=== PATIENT | male | born 1940 | race Caucasian/White ===

== ENCOUNTER 2018-11-05 12:55 | Observation (INO) | payer OTHER ==
[~2018-11-05] VITALS: Ht 180.3 cm; Wt 111.7 kg
[~2018-11-05 12:55] MED LIST: ASPI81CH PO; ATEN25 PO; AZIT250 PO; CODGUAEL PO; FAMO20 PO; FURO20 PO; LISI5 PO; LOVA40 PO; TERA5 PO; TIMO.25OPS BOTHEYES
[2018-11-05] MEDS ORDERED: ATOR20 PO (13:00)
[2018-11-05] MEDS ORDERED: Pantoprazole So40 MG PO (13:00)
[2018-11-05] MEDS ORDERED: LEVFLO500 PO (13:00)
[2018-11-05] MEDS ORDERED: METO25ER PO (13:00)
[2018-11-05 13:22] LABS: BASOPHILS ABSOLUTE AUTO 0.07 K/mm3 (0.00-0.23); BASOPHILS PERCENT AUTO 1 % (0-2); EOSINOPHILS PERCENT AUTO 2 % (0-6); Hematocrit 45.2 % (37.0-53.0); Hemoglobin 14.5 g/dL (13.5-17.5); IMMATURE GRAN ABSOLUTE AUTO 0.06 K/mm3 (0.00-0.10); IMMATURE GRAN PERCENT AUTO 1 % (0-1); LYMPHOCYTES ABSOLUTE AUTO 0.66 K/mm3 (0.84-5.20); LYMPHOCYTES PERCENT AUTO 8 % (21-46); MONOCYTES ABSOLUTE AUTO 0.72 K/mm3 (0.16-1.47); MONOCYTES PERCENT AUTO 8 % (4-13); Mean Corpuscular HGB 28.9 pg (26.0-34.0); Mean Corpuscular HGB Conc 32.1 g/dL (31.5-36.5); Mean Corpuscular Volume 90 fL (80-100); Mean Platelet Volume 11.3 fL (9.1-12.4); NEUTROPHILS ABSOLUTE AUTO 7.08 K/mm3 (1.96-9.15); NEUTROPHILS PERCENT AUTO 81 % (41-73); Platelet Count 270 K/mm3 (150-400); RDW Coefficient Variation 13.5 % (11.7-14.2); Red Blood Cell Count 5.02 M/mm3 (4.30-5.90); White Blood Cell Count 8.79 K/mm3 (4.00-11.30)
[2018-11-05 13:48] LABS: Alanine Aminotransfer (ALT/SGP 22 U/L (12-78); Albumin, Blood 3.1 g/dL (3.4-5.0); Albumin/Globulin Ratio 0.8 (0.8-1.8); Alk Phos 69 U/L (50-136); Anion Gap 8 mmol/L (6-16); Aspartate Aminotrans (AST/SGOT 14 U/L (12-37); Bilirubin, Total 0.5 mg/dL (0.1-1.0); Blood Urea Nitrogen 11 mg/dL (8-24); Bun/Creatinine Ratio 18.3 (12.0-20.0); CO2, Blood 26 mmol/L (21-32); Calcium, Blood 8.3 mg/dL (8.5-10.1); Chloride, Blood 105 mmol/L (98-108); Globulin, Blood 3.8 g/dL (2.2-4.0); Glomerular Filtration Rate >60 (60-); Glucose, Blood 123 mg/dL (70-99); Potassium, Blood 3.7 mmol/L (3.5-5.5); Sodium, Blood 139 mmol/L (136-145); Total Protein, Blood 6.9 g/dL (6.4-8.2); Troponin I <0.015 ng/mL (0.000-0.040)
[2018-11-05] MEDS ORDERED: [UNRECOGNIZED DRUG - CODE] INH (15:34)
[2018-11-05 15:50] LABS: International Normalized Ratio 1.03; Prothrombin Time Results 10.9 Sec (9.7-11.5)
[2018-11-05] MEDS ORDERED: ASPI81CH PO (16:51)
--- NOTE | 2018-11-05 18:24 | NUR ---
SHIFT SUMMARY. PT ADMITTED TO MEDICAL FLOOR. A&OX4, INDEPENDENT IN ROOM. PT REPORTS BREATHING HAS IMPROVED AFTER RECIEVING IV LASIX IN ER. LUNGS CLEAR ALTHOUGH DIM THROUGHOUT, ON RA. PT REPORTS PRODUCTIVE COUGH. PAIN TO LOWER BACK AND ABD SECONDARY TO COUGHING PER PT REPORT, FIRST DOSE OF APAP GIVEN. ECHO AND CT WITH CONTRAST ORDERED, PT AWARE.
--- NOTE | 2018-11-06 06:16 | NUR ---
SHIFT SUMMARY PT A/O INDEPENDENT. C/O PRODUCTIVE COUGH C CLEAR PHLEGM. GOT ORDER FROM DR BARCLAY FOR EMILY. HE SAID HE WAS ABLE TO SLEEP ON AND OFF T/O NIGHT. CALL LIGHT IN REACH
[2018-11-06 11:13] LABS: Automated BF WBC Count 1.475 K/mm3 (0-999); Body Fluid WBC Count 1475 /mm3 (0-999); RBC Count, Body Fluid 10000 /mm3 (0-0)
[2018-11-06 11:14] LABS: pH, Body Fluid 7.7
[2018-11-06 11:26] LABS: Albumin, Body Fluid 2.3 g/dL; Glucose, Body Fluid 88 mg/dL; Lactate Dehydrogenase, Body Fl 248 U/L; Protein, Body Fluid 4.2 g/dL; Triglycerides, Body Fluid 18 mg/dL
[2018-11-06 11:45] LABS: Color, Body Fluid L Yellow (None-Yellow)
[2018-11-06 11:46] LABS: Appearance, Body Fluid Hazy (Clear); Total Cell Count, Body Fluid 100
--- NOTE | 2018-11-06 12:10 | NUR ---
Echocardiogram completed.
[2018-11-06] MEDS ORDERED: BREO ELLIPTA 21 EACH INH (13:40)
--- NOTE | 2018-11-06 14:03 | NUR ---
SHIFT SUMMARY 1400 PT DISCHARGED HOME VIA PERSONAL VEHICLE ACCOMPANIED AND DRIVEN BY FRIEND. PT SELF AMBULATED TO FACILITY ENTRANCE PER HIS REQUEST WITH FRIEND. IV REMOVED. D/C PAPERWORK REVIEWED WITH PT AND COPY PROVIDED. THOROCENTESIS AND ECHO COMPLETED TODAY. POST THORCENTESIS PT HAD IMPROVED AIR MOVEMENT IN L LUNG AND PT REPORTED BETTER BREATHING ALSO WITH EXERTION.
== END 2018-11-06 13:58 | disposition home or self-care (01) ==
LOC: ER 12:55 → MEDS 12:56
PROVIDERS: Physician Assistant; ADMIT Hospitalist
DX: J90 Pleural effusion, not elsewhere classified (principal); J61 Pneumoconiosis due to asbestos and other mineral fibers; I25.10 Atherosclerotic heart disease of native coronary artery without angina pectoris; I11.0 Hypertensive heart disease with heart failure; I50.9 Heart failure, unspecified; Z87.891 Personal history of nicotine dependence; Z88.0 Allergy status to penicillin; Z79.899 Other long term (current) drug therapy
CPT/HCPCS: 32555; 71045; 71046; 71260; 80053; 82042; 82945; 83615; 83880; 83986; 84157; 84478; 84484; 85025; 85610; 89051; 93005; 93010; 93306; 94640; 94760; 96374-59; 96376; 99285-25; G0378; J1940; Q9967

== ENCOUNTER 2019-01-25 07:39 | Day surgery (SDC) | payer OTHER ==
[~2019-01-25] VITALS: Ht 180.3 cm; Wt 110.4 kg
[~2019-01-25 07:39] MED LIST changes: +ALBU2.5V5 NEB; +ALBU3IS INH; +ALBU90OI6 INH; +ATOR20 PO; +Aspirin EC81 MG PO; +BENZ100A PO; +BREO ELLIPTA 21 EACH; +BREO ELLIPTA 21 EACH INH; +FURO40 PO; +LEVFLO500 PO; +LEVOFLOXACIN750 MG PO; +METO25ER PO; +POTCHL20ER PO; +Pantoprazole So40 MG PO; +Terazosin HCl10 MG PO; +[UNRECOGNIZED DRUG - CODE] INH
--- NOTE | 2019-01-25 08:26 | NUR ---
0815 Ambulatory in Day Surgery Surgical site prepped with 2% Chlorhexidine cloth wipe. History, Chart, Medications and Allergies reviewed before start of procedure.Lungs DIMINISHED L LUNG, INSP CRACKLES R, NO DYSPNEA, Patient confirms NPO status and agrees with scheduled surgery. Pre-Op teaching done. Pt verbalizes understanding. Patient reports completing Chlorhexadine shower X2 prior to admission to hospital.
--- NOTE | 2019-01-25 10:25 | NUR ---
PT A&O, DRESSING TO R NECK AND CHEST D&I. DENIES PAIN. NO ACUTE DISTRESS.
--- NOTE | 2019-01-25 10:42 | NUR ---
PT TOLERATES PO FLUIDS. PT AMB TO BATHROOM AND BACK WHICH IS ABOUT 20 FEET TOTAL. PT BIOX 85% WHILE SITTING ON THE EDGE OF THE BED. PT IS NOT VISABLY SOB BUT BIOX TAKES ABOUT 3-4 MINUTES TO RECOVER AND RETURN TO 92-95%. PT REOPRTS SIGNIFICANT SOB WITH ACTIVITY AT HOME WITH ANY ACTIVITY. PT ENCOURAGED TO TALK WITH HIS PROVIDED ABOUT THIS. PT VERBALIZED UNDERSTANDING.
--- NOTE | 2019-01-25 11:00 | NUR ---
Discharge instructions reviewed with patient. Patient verbalizes understanding. Copy given to patient to take home. Dressing to procedure site clean, dry, intact with no visible drainage, swelling, erythema or bruising noted. Patient States Post-Procedure ride home has been arranged. Discharged via wheelchair to private car for ride home.
== END 2019-01-25 10:58 | disposition home or self-care (01) ==
LOC: ORSCMMR 07:39 → ORD 09:30 → ORSCMMR 10:58
PROVIDERS: Surgery
PROC: 05HM33Z Insertion of Infusion Device into Right Internal Jugular Vein, Percutaneous Approach (ICD-10-PCS; principal; 2019-01-25 09:30)
PROC: B5131ZA Fluoroscopy of Right Jugular Veins using Low Osmolar Contrast, Guidance (ICD-10-PCS; principal; 2019-01-25 09:30)
DX: C45.0 Mesothelioma of pleura (principal); I10 Essential (primary) hypertension; K21.9 Gastro-esophageal reflux disease without esophagitis; Z79.899 Other long term (current) drug therapy; Z79.82 Long term (current) use of aspirin
CPT/HCPCS: 77001; C1788; J0690; J1100; J1642; J2250; J2370; J2405; J2704; J3010; J7120

== ENCOUNTER → 2019-04-06 | Outpatient (CLI) | payer OTHER ==
[~2019-04-06] MED LIST changes: +CEPH500 PO; +FUROSEMIDE20 MG PO; +Potassium Chlo20 ME1 PO
== END ==
LOC: LAB SHORT 19:17 → LAB 19:17
DX: L02.413 Cutaneous abscess of right upper limb (principal)
CPT/HCPCS: 87070; 87077; 87147; 87186; 87205

== ENCOUNTER 2019-06-01 00:13 | Day surgery (SDC) | payer OTHER ==
[2019-05-29 08:05] LABS: BASOPHILS ABSOLUTE AUTO 0.02 K/mm3 (0.00-0.23); BASOPHILS PERCENT AUTO 0 % (0-2); EOSINOPHILS ABSOLUTE AUTO 0.04 K/mm3 (0.00-0.68); EOSINOPHILS PERCENT AUTO 1 % (0-6); Hematocrit 23.6 % (37.0-53.0); Hemoglobin 7.6 g/dL (13.5-17.5); IMMATURE GRAN ABSOLUTE AUTO 0.04 K/mm3 (0.00-0.10); IMMATURE GRAN PERCENT AUTO 1 % (0-1); LYMPHOCYTES ABSOLUTE AUTO 0.53 K/mm3 (0.84-5.20); LYMPHOCYTES PERCENT AUTO 12 % (21-46); MONOCYTES ABSOLUTE AUTO 0.52 K/mm3 (0.16-1.47); MONOCYTES PERCENT AUTO 12 % (4-13); Mean Corpuscular HGB 34.5 pg (26.0-34.0); Mean Corpuscular HGB Conc 32.2 g/dL (31.5-36.5); Mean Platelet Volume 12.3 fL (9.1-12.4); NEUTROPHILS ABSOLUTE AUTO 3.39 K/mm3 (1.96-9.15); NEUTROPHILS PERCENT AUTO 75 % (41-73); Platelet Count 53 K/mm3 (150-400); RDW Coefficient Variation 23.4 % (11.7-14.2); RDW Standard Deviation 90.5 fL (35.1-46.3); White Blood Cell Count 4.54 K/mm3 (4.00-11.30)
[2019-05-29 08:15] LABS: Mean Corpuscular Volume 107 fL (80-100)
[2019-05-29 08:17] LABS: Alanine Aminotransfer (ALT/SGP 19 U/L (12-78); Albumin, Blood 2.6 g/dL (3.4-5.0); Albumin/Globulin Ratio 0.8 (0.8-1.8); Alk Phos 85 U/L (50-136); Anion Gap 8 mmol/L (6-16); Aspartate Aminotrans (AST/SGOT 22 U/L (12-37); Bilirubin, Total 0.9 mg/dL (0.1-1.0); Blood Urea Nitrogen 37 mg/dL (8-24); Bun/Creatinine Ratio 33.6 (12.0-20.0); CO2, Blood 27 mmol/L (21-32); Calcium, Blood 7.5 mg/dL (8.5-10.1); Chloride, Blood 101 mmol/L (98-108); Globulin, Blood 3.3 g/dL (2.2-4.0); Glomerular Filtration Rate >60 (60-); Glucose, Blood 91 mg/dL (70-99); Potassium, Blood 3.9 mmol/L (3.5-5.5); Sodium, Blood 136 mmol/L (136-145); Total Protein, Blood 5.9 g/dL (6.4-8.2)
[~2019-06-01 00:13] MED LIST changes: -CEPH500 PO; -FUROSEMIDE20 MG PO; -Potassium Chlo20 ME1 PO
[2019-06-01] MEDS ORDERED: Potassium Chlo20 ME1 PO (08:08)
[2019-06-01] MEDS ORDERED: FUROSEMIDE20 MG PO (08:08)
[2019-06-01] MEDS ORDERED: CEPH500 PO (08:10)
--- NOTE | 2019-06-01 15:23 | NUR ---
CRACKLES IN LLL NOTED THROUGHOUT TRANSFUSION. NO C/O SOB OR COUGHING.
== END 2019-06-01 11:45 | disposition home or self-care (01) ==
LOC: ATC 00:13
PROVIDERS: Internal Medicine Hematology & Oncology
PROC: 30243N1 Transfusion of Nonautologous Red Blood Cells into Central Vein, Percutaneous Approach (ICD-10-PCS; principal; 2019-06-01)
DX: C45.0 Mesothelioma of pleura (principal); D63.0 Anemia in neoplastic disease; I11.0 Hypertensive heart disease with heart failure; I50.9 Heart failure, unspecified; I25.10 Atherosclerotic heart disease of native coronary artery without angina pectoris; K21.9 Gastro-esophageal reflux disease without esophagitis; M19.90 Unspecified osteoarthritis, unspecified site; E66.9 Obesity, unspecified; Z68.34 Body mass index [BMI] 34.0-34.9, adult; Z87.891 Personal history of nicotine dependence; Z95.1 Presence of aortocoronary bypass graft; Z79.899 Other long term (current) drug therapy; Z79.82 Long term (current) use of aspirin; Z88.0 Allergy status to penicillin
CPT/HCPCS: 36415; 36430; 80053; 85025; 86850; 86900; 86901; 86923; J1642; J7050; P9016

== ENCOUNTER → 2019-08-13 | Outpatient (CLI) | payer OTHER ==
[~2019-08-13] MED LIST changes: +CEPH500 PO; +FUROSEMIDE20 MG PO; +Potassium Chlo20 ME1 PO
[2019-08-13 18:22] LABS: Adenovirus F 40/41 Not Detected (NOT DETECT); Astrovirus Not Detected (NOT DETECT); Campylobacter Sp Not Detected (NOT DETECT); Cryptosporidium Not Detected (NOT DETECT); Cyclospora Cayetanensis Not Detected (NOT DETECT); E. Coli O157 Not Detected (NOT DETECT); Entamoeba Histolytica Not Detected (NOT DETECT); Enteroaggregative E. coli-EAEC Not Detected (NOT DETECT); Enteropathogenic E. coli-EPEC Not Detected (NOT DETECT); Enterotoxigenic E. coli-ETEC Not Detected (NOT DETECT); Giardia Lamblia Not Detected (NOT DETECT); Norovirus GI/GII Not Detected (NOT DETECT); Plesiomonas Shigelloides Not Detected (NOT DETECT); Rotavirus A Not Detected (NOT DETECT); Salmonella Sp Not Detected (NOT DETECT); Sapovirus Not Detected (NOT DETECT); Shiga Toxin-prod E. coli-STEC Not Detected (NOT DETECT); Shigella/Enteroin E. coli-EIEC Not Detected (NOT DETECT); Vibrio Cholerae Not Detected (NOT DETECT); Vibrio Sp Not Detected (NOT DETECT); Yersinia Enterocolitica Not Detected (NOT DETECT)
== END ==
LOC: LAB EV 14:00
PROVIDERS: Physician Assistant Surgical
DX: R19.7 Diarrhea, unspecified (principal)
CPT/HCPCS: 0097U

== ENCOUNTER 2019-10-13 06:22 | Day surgery (SDC) | payer OTHER ==
[~2019-10-13] VITALS: Ht 177.8 cm; Wt 94.0 kg
[2019-10-13] MEDS ORDERED: Prinivil10 MG PO (06:54)
--- NOTE | 2019-10-13 11:45 | NUR ---
10cc air removed from R wrist TR band. -bleeding or swelling. Pt up to the bathroom /c sba. Tolerated well.
--- NOTE | 2019-10-13 13:01 | NUR ---
L WRIST TR BAND REMOVED. -BLEEDING OR SWELLING. PUNCTURE AREA CLEANED WITH NS AND CLOTH DOT DRSG PLACED. R WRIST SPLINT REAPPLIED. IV REMOVED. PT TAKEN OUT OF THE HRT CENTER VIA W/C.
== END 2019-10-13 13:00 | disposition home or self-care (01) ==
LOC: MHTC 06:22
PROC: B206YZZ Plain Radiography of Right and Left Heart using Other Contrast (ICD-10-PCS; principal; 2019-10-13)
PROC: 4A023N8 Measurement of Cardiac Sampling and Pressure, Bilateral, Percutaneous Approach (ICD-10-PCS; principal; 2019-10-13)
PROC: B201YZZ Plain Radiography of Multiple Coronary Arteries using Other Contrast (ICD-10-PCS; principal; 2019-10-13)
DX: I25.119 Atherosclerotic heart disease of native coronary artery with unspecified angina pectoris (principal); I27.22 Pulmonary hypertension due to left heart disease; I11.0 Hypertensive heart disease with heart failure; I50.9 Heart failure, unspecified; J44.9 Chronic obstructive pulmonary disease, unspecified; I08.3 Combined rheumatic disorders of mitral, aortic and tricuspid valves; Z88.0 Allergy status to penicillin; Z95.1 Presence of aortocoronary bypass graft; Z87.891 Personal history of nicotine dependence; Z79.82 Long term (current) use of aspirin; Z79.899 Other long term (current) drug therapy; I77.819 Aortic ectasia, unspecified site
CPT/HCPCS: 93461; 99152; 99153; C1769; C1894; J1644; J2250; J3010; J7030; Q9967

== ENCOUNTER 2020-03-09 08:28 | Inpatient (IN) | payer MEDICARE, OTHER ==
[~2020-03-09] VITALS: Ht 185.4 cm; Wt 73.8 kg
[~2020-03-09 08:28] MED LIST changes: -ATOR20 PO; -Aspirin EC81 MG PO; -METO25ER PO; -Pantoprazole So40 MG PO
[2020-03-09 09:39] LABS: BASOPHILS ABSOLUTE AUTO 0.05 K/mm3 (0.00-0.23); BASOPHILS PERCENT AUTO 0 % (0-2); EOSINOPHILS PERCENT AUTO 0 % (0-6); Hematocrit 37.2 % (37.0-53.0); Hemoglobin 11.1 g/dL (13.5-17.5); IMMATURE GRAN ABSOLUTE AUTO 0.25 K/mm3 (0.00-0.10); IMMATURE GRAN PERCENT AUTO 1 % (0-1); LYMPHOCYTES ABSOLUTE AUTO 0.56 K/mm3 (0.84-5.20); LYMPHOCYTES PERCENT AUTO 3 % (21-46); MONOCYTES ABSOLUTE AUTO 1.02 K/mm3 (0.16-1.47); MONOCYTES PERCENT AUTO 5 % (4-13); Mean Corpuscular HGB 27.8 pg (26.0-34.0); Mean Corpuscular HGB Conc 29.8 g/dL (31.5-36.5); Mean Corpuscular Volume 93 fL (80-100); NEUTROPHILS ABSOLUTE AUTO 19.61 K/mm3 (1.96-9.15); NEUTROPHILS PERCENT AUTO 91 % (41-73); NRBC ABSOLUTE 0.02 K/mm3 (0.00-0.02); NRBC Auto 0.1 /100 WBC (0.0-0.2); Platelet Count 363 K/mm3 (150-400); RDW Coefficient Variation 15.5 % (11.7-14.2); RDW Standard Deviation 50.5 fL (35.1-46.3); White Blood Cell Count 21.49 K/mm3 (4.00-11.30)
[2020-03-09 10:01] LABS: Albumin, Blood 2.6 g/dL (3.4-5.0); Albumin/Globulin Ratio 0.7 (0.8-1.8); Bilirubin, Total 0.8 mg/dL (0.1-1.0); Bun/Creatinine Ratio 25.6 (12.0-20.0); Calcium, Blood 8.6 mg/dL (8.5-10.1); Creatinine, Blood 2.34 mg/dL (0.60-1.20); Globulin, Blood 3.8 g/dL (2.2-4.0); Potassium, Blood 5.2 mmol/L (3.5-5.5); Total Protein, Blood 6.4 g/dL (6.4-8.2)
[2020-03-09 10:33] LABS: International Normalized Ratio 1.33
[2020-03-09] MEDS ORDERED: ATOR20 PO (12:26)
[2020-03-09] MEDS ORDERED: Hydroxyzine HCl50 MG PO (12:27)
[2020-03-09] MEDS ORDERED: METO25ER PO (12:28)
[2020-03-09] MEDS ORDERED: Prinivil10 MG PO (12:28)
[2020-03-09] MEDS ORDERED: Pantoprazole So40 MG PO (12:28)
[2020-03-09] MEDS ORDERED: Aspirin EC81 MG PO (12:28)
[2020-03-09] MEDS ORDERED: PRED FORTE5 M1 LEFTEYE (12:29)
[2020-03-09] MEDS ORDERED: TRIFLURIDINE 1% LEFTEYE (12:30)
[2020-03-09] MEDS ORDERED: Ondansetron Odt8 MG SL (12:39)
[2020-03-09 12:58] LABS: CPK Creatine Kinase 73 U/L (39-308)
--- NOTE | 2020-03-09 14:00 | NUR ---
ARIVES TO ICU: PT ARIVES TO ICU FROM ED NO ACUTE DISTRESS NOTED. PT IS CURRENTLY ON 4L O2 NC. PLACED ON ICU MONITOR. DR HAYES AT BEDSIDE TO ASSIST WITH TRANSFER TO ICU BED.
--- NOTE | 2020-03-09 14:00 | NUR ---
EYES AND SHINGLES: PT IS NOTED TO HAVE SCABS RANGING ONVER THE TOP OF THE L SIDE OF HIS HEAD DOWN TO HIS L EYE. SOME WEEPING NOTED AROUND THE SCABS NEAR THE L EYE. L EYE PT KEEPS CLOSED AND HAS TO BE MANUALLY OPENED TO ASSESS. EYE DROPPS ORDERED PER HOME MEDICATIONS LIST.
--- NOTE | 2020-03-09 14:30 | NUR ---
PT VERBALIZES THAT IN THE EVENT HE IS UNABLE TO MAKE DECISIONS FOR HIMSELF, HE WOULD APPOINT HIS BROTHER TO BE HIS DECISION MAKER.
--- NOTE | 2020-03-09 14:40 | NUR ---
KUO STARTED NG TUBE PLACED AND HOOKED UP TO LOW INT SUCTION.
--- NOTE | 2020-03-09 14:41 | NUR ---
IN ROOM: ASSESSING PT FOR THORACENTISIS AT THIS TIME.
--- NOTE | 2020-03-09 14:47 | NUR ---
Pt resting in bed and receiving care from ICU staff. Pt currently in Airborne precautions. Spoke with Bedside RN Didi. Didi reports Pt has given permission to call friend and Pt's brother. Pt has desginated his brother has decision maker if Pt is not able to make decisions. Called friend Kalyn that is listed and provided update. Received Pt's brother Mingo contact information from Kalyn. Kalyn reports brother plans to come down to [place] to visit Pt tomorrow. Called and left a message with Pt's brother Mingo with request for a return phone call. Mingo's number [phone]. Friend Kalyn's number [phone]. Palliative Care will remain available for therapeutic visits.
--- NOTE | 2020-03-09 14:54 | NUR ---
THORASENTISIS IN PROGRESS AT THIS TIME.
--- NOTE | 2020-03-09 15:12 | NUR ---
Late Entry from previous note. Received return call from Pt's brother Mingo. Updated Mingo and reviewed plan of care. Mingo reports living [place] of [facility] and plans to head down tomorrow morning. Mingo requests call with any change in Pt's condition. Mingo will have his cell phone with him tomorrow but requests to not call cell number until tomorrow. Mingo gives consent to leave message if needed. Mingo's Cell number [phone]. Home number [phone].
--- NOTE | 2020-03-09 15:18 | NUR ---
THORACENTESIS: UNSUCESSFULL AT THIS TIME.
[2020-03-09 15:45] LABS: Source, Urine Clean Catch
[2020-03-09 15:51] LABS: Hematocrit 38.6 % (37.0-53.0); Hemoglobin 11.3 g/dL (13.5-17.5)
[2020-03-09 16:06] LABS: Calcium, Blood 8.1 mg/dL (8.5-10.1); Creatinine, Blood 2.5 mg/dL (0.60-1.20); Potassium, Blood 5.9 mmol/L (3.5-5.5)
[2020-03-09 16:32] LABS: Base Excess Venous -4.8 mmol/L; Bicarbonate Venous 19.2 mmol/L (24.0-30.0); PCO2 Venous 83.7 mmHg (38-42); PO2 Venous 77.1 mmHg (38-42)
[2020-03-09 16:33] LABS: pH Blood Venous 7.09 (7.34-7.37)
[2020-03-09 16:41] LABS: Appearance, Urine Hazy (Clear); Bilirubin, Urine Neg (Neg); Blood, Urine Neg (Neg); Color, Urine Amber (P-Yellow); Glucose Qualitative, Urine Neg (Neg); Ketones, Urine 1+ (Neg); Leukocyte Esterase, Urine 1+ (Neg); Nitrite, Urine Neg (Neg); Protein, Urine 1+ (Neg); Urobilinogen, Urine NORM (Normal)
--- NOTE | 2020-03-09 16:53 | NUR ---
CRITICAL VBG: NOTIFIED DR HAYES. PREPING FOR INTUBATION
[2020-03-09 16:54] LABS: Red Blood Cells, Urine 0-2 /hpf (0-2); Squamous Epithelial Cells Rare /hpf (Few)
[2020-03-09 16:55] LABS: Bacteria Few /hpf
--- NOTE | 2020-03-09 17:47 | NUR ---
CENTRAL LINE PLACEMENT: DR REARDON COMPLETED A LIJ CENTRAL LINE PLACEMENT 8.5 CANADIAN, 4 LUMEN 16 CM. X-RAY ORDERED FOR ET TUBE AND CENTRAL LINE PLACEMENT VERAFICATION
--- NOTE | 2020-03-09 18:30 | NUR ---
1813: RADIOLOGIST JESSICA AND LIN ULTRASOUND GUIDED THORACENTESIS. 1L REMOVED OFF OF THE R LUNG. NOTED TO BE A REDISH BROWN COLOR. CHEST X-RAY ORDERED.
--- NOTE | 2020-03-09 18:45 | NUR ---
SALINAS ALMANZA: PLACED BEAR ARCHIE AT THIS TIME D/T LOW TEMP
[2020-03-09 18:58] LABS: Automated BF RBC Count 0.021 M/mm3 (0-0); Automated BF WBC Count 0.204 K/mm3 (0-999); Body Fluid WBC Count 204 /mm3 (0-999); RBC Count, Body Fluid 21000 /mm3 (0-0)
[2020-03-09 19:15] LABS: Lactate Dehydrogenase, Body Fl 227 U/L
[2020-03-09 19:16] LABS: Glucose, Body Fluid 123 mg/dL
[2020-03-09 19:29] LABS: Appearance, Body Fluid Hazy (Clear); Color, Body Fluid Amber (None-Yellow); Total Cell Count, Body Fluid 100
--- NOTE | 2020-03-09 19:30 | NUR ---
ASSUMED CARE OF PATIENT: REC'D. REPORT FROM OFFGOING SHIFT. PATIENT INTUBATED ON VENTILATOR. CURRENT DRIPS ASSESSED (SEE ICU FLOWSHEET). TEMP 90; FAREED HUGGER IN PLACE. VASOPRESSIN DRIP STARTED PER MD ORDER.
--- NOTE | 2020-03-09 20:10 | NUR ---
1700: DR HAYES IN THE ROOM, RECEIVES VERBAL AGREEMENT FROM PATIENT TO BE INTUBATED AND PLACED ON A VENT. PT ALSO AGRESS TO AN ULTRASOUND GUIDED THORASENDISIS. 1706: RT LIZETT AND JOCELYN IN THE ROOM ALONG WITH DR FREDDY ZHU RN AND AMAN RN AT THE BEDSIDE FOR ASSIST. 1707: 20MG ETOMIDATE PUSHED BY AMAN HERNANDEZ AT THIS TIME BY DIRECTION OF DR HAYES. 1708: 8.0 TUBE PLACED WITH SCOPE AND PLACED AT 24 AT THE TEETH. PT COLOR CHANGE NOTED TO IMPROVE AND LUNG SOUNDS ARE NOTED BILATERALY. 1710: PROPOFOL STARTED AT 20MCG/KG/MIN 1713: BILAT SOFT WRIST RESTRAINTS PLACED.
[2020-03-09 21:00] LABS: PCO2 Arterial 46.2 mmHg (35-45); PO2 Arterial 216 mmHg (80-100); pH Blood Arterial 7.26 (7.35-7.45)
[2020-03-09 21:16] LABS: Hematocrit 36.7 % (37.0-53.0); Hemoglobin 10.9 g/dL (13.5-17.5)
--- NOTE | 2020-03-09 21:50 | NUR ---
UPDATED DR. HAYES ON PATIENT CONDITION AND RECENT TROPONIN LEVEL.
--- NOTE | 2020-03-09 23:00 | NUR ---
DISCUSSED WITH DR. HAYES PATIENT'S URINE OUTPUT AND CURRENT CLINICAL STATUS; REQUESTED PAIN MEDS. IN ICU TO PLACE ORDERS.
--- NOTE | 2020-03-09 23:25 | NUR ---
NS 500CC IV FLUID BOLUS STARTED PER MD ORDER. PATIENT GIVEN FENTANYL 25MCG IV FOR CPOT OF 5.
[2020-03-10 03:46] LABS: BASOPHILS ABSOLUTE AUTO 0.04 K/mm3 (0.00-0.23); BASOPHILS PERCENT AUTO 0 % (0-2); EOSINOPHILS PERCENT AUTO 0 % (0-6); Hematocrit 34.8 % (37.0-53.0); Hemoglobin 10.4 g/dL (13.5-17.5); IMMATURE GRAN ABSOLUTE AUTO 0.23 K/mm3 (0.00-0.10); IMMATURE GRAN PERCENT AUTO 1 % (0-1); LYMPHOCYTES ABSOLUTE AUTO 0.33 K/mm3 (0.84-5.20); LYMPHOCYTES PERCENT AUTO 1 % (21-46); MONOCYTES ABSOLUTE AUTO 0.66 K/mm3 (0.16-1.47); MONOCYTES PERCENT AUTO 2 % (4-13); Mean Corpuscular HGB 27.5 pg (26.0-34.0); Mean Corpuscular HGB Conc 29.9 g/dL (31.5-36.5); Mean Corpuscular Volume 92 fL (80-100); Mean Platelet Volume 11.4 fL (9.1-12.4); NEUTROPHILS PERCENT AUTO 96 % (41-73); NRBC ABSOLUTE 0.14 K/mm3 (0.00-0.02); NRBC Auto 0.5 /100 WBC (0.0-0.2); Platelet Count 331 K/mm3 (150-400); RDW Coefficient Variation 15.2 % (11.7-14.2); RDW Standard Deviation 50.1 fL (35.1-46.3); Red Blood Cell Count 3.78 M/mm3 (4.30-5.90); White Blood Cell Count 27.06 K/mm3 (4.00-11.30)
[2020-03-10 04:31] LABS: Magnesium, Blood 1.3 mg/dL (1.6-2.4)
[2020-03-10 04:44] LABS: Albumin/Globulin Ratio 0.6 (0.8-1.8); Bilirubin, Total 0.4 mg/dL (0.1-1.0); Bun/Creatinine Ratio 24.9 (12.0-20.0); Calcium, Blood 7.1 mg/dL (8.5-10.1); Creatinine, Blood 2.65 mg/dL (0.60-1.20); Globulin, Blood 3.6 g/dL (2.2-4.0); Potassium, Blood 4.8 mmol/L (3.5-5.5); Total Protein, Blood 5.6 g/dL (6.4-8.2); Troponin I 0.835 ng/mL (0.000-0.040)
[2020-03-10 04:52] LABS: Phosphorus, Blood 3.3 mg/dL (2.5-4.9)
--- NOTE | 2020-03-10 05:05 | NUR ---
CALLED DR. HAYES WITH CRITICAL LAB RESULTS; UPDATED MD ON PATIENT CONDITION. REC'D. ORDERS FOR MAGNESIUM SULFATE 1 GM IV; NS 500 CC IV BOLUS; AND INSULIN HIGH SLIDING SCALE.
[2020-03-10 05:28] LABS: pH Blood Arterial 7.29 (7.35-7.45)
[2020-03-10 05:29] LABS: PCO2 Arterial 42.9 mmHg (35-45); PO2 Arterial 82.8 mmHg (80-100)
--- NOTE | 2020-03-10 06:21 | NUR ---
SHIFT SUMMARY: PATIENT REMAINS INTUBATED AND SEDATED ON PROPOFOL; PATIENT GIVEN TWO DOSES OF FENTANYL 25MCG IV DURING THE NIGHT FOR PAIN. RHYTHM SINUS TACH., 110'S. PATIENT STILL ON VASOPRESSIN, LEVOPHED, AND EPINEPHRINE WITH INABILITY TO WEAN DOWN. TEMPERATURE NOW 94.5; FAREED HUGGER IN PLACE. URINE OUTPUT MINIMAL; MD AWARE; PATIENT GIVEN TWO BOLUSES OF NS 500CC IV. PROTONIX DRIP INFUSING AT 8MG/HR; OGT TO LIWS WITH SMALL AMOUNT OF BROWNISH BLACK DRAINAGE NOTED. AWAITING BROTHER TO ARRIVE THIS AM. CONTINUE CURRENT POC.
--- NOTE | 2020-03-10 09:03 | NUR ---
CARE ASSUMED CARE AND REPORT ASSUMED FROM NIGHT DAVID CINTRON. PT INTUBATED AND SEDATED. VENT AC 18, 375, PEEP 5, FIO2 40%. LUNG SOUNDS CLEAR THROUGHOUT BUT DIMINISHED IN BASES. PROPOFOL GTT AT 30 MCG. DURING SEDATION VACATION THIS AM, PT DID OPEN HIS EYES AND WAS PULLING AGAINST RESTRAINTS. DID OPEN EYES WHEN PROMPTED BUT WAS NOT ABLE TO FOLLOW ANY OTHER COMMANDS. BUE RESTRAINED. PT HAS DIFFUSE SCABS OVER HIS LEFT FACE, EYE, AND NECK. LEVOPHED GTT INFUSING AT 20 MCG, VASOPRESSIN AT 0.04, AND EPI AT 5 MCG. PROTONIX GTT INFUSING AT 10 ML/HR. NS MIV AT 75 ML/HR. MAGNESIUM REPLACED THIS AM BY NOC SHIFT. ABX INFUSING. OGT SECURED AND ATTACHED TO LIWS. BLACK OUTPUT FROM OGT. OGT FLUSHED WITH 200 ML NS BY MD POE; NO ACTIVE BLOOD WITHDRAWN DURING ASPIRATION. HOB ELEVATED. WILL OBTAIN STOOL SAMPLE. WILL CONTINUE TO MONITOR.
--- NOTE | 2020-03-10 13:04 | NUR ---
REASSESSMENT PT REMAINS INTUBATED AND SEDATED. VENT AC 18, 400, 5, FIO2 35%. LUNG SOUNDS CLEAR BUT DIMINISHED IN BASES. CVP 8; MD AWARE. PROPOFOL GTT AT 30 MCG. BROTHER CORINA AND SIGNIFICANT OTHER JAYSHREE UPDATED BY MD HAYES. BROTHER CORINA CURRENTLY AT BESIDE, SEDATION VACATION IN PROGRESS. MAP >65. EPINEPHRINE GTT AT 4 MCG/MIN, LEVOPHED AT 12 MCG/MIN, VASOPRESSIN AT 0.04. PROTONIX GTT CONTINUES TO INFUSE ALONG WITH MIV NS AT 75 ML/HR. 1200 BLOOD SUGAR 240; WILL RECHECK THIS AFTERNOON AND POSSIBLY INITIATE INSULIN GTT. PT TURNED AND HOB ELEVATED. HAS THICK, YELLOW SECRETIONS. WILL CONTINUE TO MONITOR.
--- NOTE | 2020-03-10 18:32 | NUR ---
SHIFT SUMMARY PT REMAINS INTUBATED. PROPOFOL GTT REMAINS AT 30 MCG. 2 SEDATION VACATIONS PERFORMED. DID NOT START INSULIN GTT TODAY, SINCE BLOOD SUGARS HAVE DECREASED AFTER CHANGING DRIPS FROM D5 TO NS. LEVOPHED GTT DOWN TO 10 MCG. EPINEPHRINE GTT OFF SINCE 1700. VASOPRESSIN GTT CONTINUES TO INFUSE AT 0.04. LEVOPHED GTT CHANGED TO DOUBLE STRENGTH. PHOTOS OBTAINED OF SCABS; SEE CHART. PT EVALUATED BY MD POE; NO SCOPE UNLESS ACUTE BLEEDING BEGINS. PT HAS HAD BLACK OUTPUT FROM OGT ENTIRE SHIFT WITH TOTAL OF 300 ML. BROTHER, SISTER IN LAW, AND PTS GIRLFRIEND WHOM HE LIVES WITH WERE UPDATED BY MD HAYES. BROTHER CAME TO BEDSIDE, SEDATION VACATION PERFORMED, AND QUESTIONS ANSWERED. WILL GIVE BEDSIDE, HANDOFF REPORT TO UMA RN.
--- NOTE | 2020-03-10 21:36 | NUR ---
ASSUMED CARE OF PT, REPORT RCV'D FROM DAVID DIETRICH. PT INTUBATED AND SEDATED. VENT SETTINGS AC 16/450/5/35%, SATS>90%. PROPOFOL 30 MCG/KG/MIN INFUSING FOR SEDATION. PT MINIMALLY RESPONSIVE TO PAINFUL/NOXOIUS STIMULI. PT FAILS TO OPEN HIS EYES OR FOLLOW COMMANDS. WEAKLY MOVES ALL EXTREMETIES. BP STABLE AT THIS TIME WITH MAP>65. LEVOPHED @10 MCG/MIN AND VASOPRESSIN 0.04 U/MIN. EPINEPHRINE ON STANDBY SINCE 1699. PROTONIX GTT 10 ML/HR. KUO PATENT AND DRAINING. PT IN AIRBORNE PRECAUTIONS D/T HERPES ZOSTER. SEE FULL SHIFT ASSESSMENT.
--- NOTE | 2020-03-10 22:33 | NUR ---
DURING BED BATH IT WAS NOTICED THAT PT HAD LARGE 8X10 CM DARK PURPLE AREA ON COCCYX AND SURROUNDING AREA WITH 2 SMALL BLISTERS TOWARD TOP RIGHT SIDE. PICTURES TAKEN FOR PT'S CHART, MEPILEX PLACED AND DATED. CHARGE NURSE DINORA UPDATED. WILL AVOID PLACEMENT OF PT IN SUPINE POSITIONS AND WILL REPOSITION Q2 AND PRN.
[2020-03-11 03:44] LABS: Base Excess Venous -4.4 mmol/L; Bicarbonate Venous 20.9 mmol/L (24.0-30.0); PCO2 Venous 35.8 mmHg (38-42); PO2 Venous 46.5 mmHg (38-42); pH Blood Venous 7.37 (7.34-7.37)
[2020-03-11 03:47] LABS: BASOPHILS ABSOLUTE AUTO 0.03 K/mm3 (0.00-0.23); BASOPHILS PERCENT AUTO 0 % (0-2); EOSINOPHILS PERCENT AUTO 0 % (0-6); Hematocrit 28.3 % (37.0-53.0); Hemoglobin 9.1 g/dL (13.5-17.5); IMMATURE GRAN ABSOLUTE AUTO 0.14 K/mm3 (0.00-0.10); IMMATURE GRAN PERCENT AUTO 1 % (0-1); LYMPHOCYTES ABSOLUTE AUTO 0.39 K/mm3 (0.84-5.20); LYMPHOCYTES PERCENT AUTO 2 % (21-46); MONOCYTES ABSOLUTE AUTO 0.52 K/mm3 (0.16-1.47); MONOCYTES PERCENT AUTO 2 % (4-13); Mean Corpuscular HGB Conc 32.2 g/dL (31.5-36.5); Mean Platelet Volume 11.8 fL (9.1-12.4); NEUTROPHILS ABSOLUTE AUTO 20.92 K/mm3 (1.96-9.15); NEUTROPHILS PERCENT AUTO 95 % (41-73); NRBC ABSOLUTE 0.03 K/mm3 (0.00-0.02); NRBC Auto 0.1 /100 WBC (0.0-0.2); Platelet Count 200 K/mm3 (150-400); RDW Standard Deviation 46.7 fL (35.1-46.3); Red Blood Cell Count 3.25 M/mm3 (4.30-5.90)
[2020-03-11 04:05] LABS: Albumin, Blood 1.9 g/dL (3.4-5.0); Albumin/Globulin Ratio 0.6 (0.8-1.8); Bilirubin, Total 0.5 mg/dL (0.1-1.0); Bun/Creatinine Ratio 24.2 (12.0-20.0); Calcium, Blood 7.1 mg/dL (8.5-10.1); Creatinine, Blood 2.73 mg/dL (0.60-1.20); Globulin, Blood 3.3 g/dL (2.2-4.0); Magnesium, Blood 1.5 mg/dL (1.6-2.4); Phosphorus, Blood 3.1 mg/dL (2.5-4.9); Potassium, Blood 4.2 mmol/L (3.5-5.5); Total Protein, Blood 5.2 g/dL (6.4-8.2)
[2020-03-11 04:07] LABS: Mean Corpuscular Volume 87 fL (80-100)
--- NOTE | 2020-03-11 06:03 | NUR ---
SHIFT SUMMARY NO ACUTE CHANGES OVERNIGHT. PT REMAINS INTUBATED AND SEDATED. VENT SETTINGS REMAIN UNCHANGED. PROPOFOL @ 25 MCG/KG/MIN FOR SEDATION. NO NEUROLOGICAL CHANGES, PT FAILS TO OPEN EYES, WEAKLY RESPONDS TO PAINFUL STIMULI WITH FACIAL GRIMACE, SLIGHTLY MOVES ALL EXTREMETIES. SMALL AMOUNT OF CLEAR THIN SPUTUM FROM ETT. OGT TO LIS, 25 ML DARK BROWN COFFEE GROUND OUTPUT. 950 ML URINARY OUTPUT. PT'S VSS T/O SHIFT. LEVOPHED @ 6 MCG/MIN, VASOPRESSIN 0.04 U/MIN. ATTEMPTS TO TURN VASOPRESSIN OFF RESULTED IN HYPOTENSION. CVP FROM THIS SHIFT 5. 950 ML URINARY OUTPUT THIS SHIFT. WILL REPORT TO DAYSHIFT NURSE.
--- NOTE | 2020-03-11 08:30 | NUR ---
ASSUMED CARE OF PT AT 0700. REPORT FROM LANDON HERNANDEZ. PT INTUBATED AND SEDATED. VENT SETTINGS AC 18/400/5/35%. PROPOFOL INFUSING AT 25 MCG/KG/MIN. LEVOPHED INFUSING AT 6 MCG/MIN, VASOPRESSIN 0.04 UNIT/MIN, WILL CONTINUE TO TITRATE FOR MAP >65. LUNGS DIMINISHED THROUGHOUT. SCANT THIN CLEAR SECRETIONS FROM ETT. GAG AND SWALLOW REFLEX PRESENT. DURING SEDATION VACATION, PT ABLE TO WIGGLE TOES BILATERALLY ON COMMAND, DID NOT SQUEEZE HANDS, EYE REMAINED CLOSED, GRIMACES c CARE. PROPOFOL RESTARTED D/T INCREASED RESP RATE. ABD ROUND, SOFT, APPEARS TENDER, GRIMACES c PALPATION. OGT TO LIS, CLEAR EMESIS c COFFEE GROUND PIECES, MINIMAL AMOUT. KUO PATENT, DRAINING CLEAR YELLOW URINE TO GRAVITY. COCCXY RED, MEIPLEX IN PLACE, WILL TURN q2 AND AVOID SUPINE POSITION. SCABBING TO LEFT SIDE OF HEAD, SEE PHOTOS IN CHART. LEFT IJ, DRESSING C/D/I. CVP 8. MEDIPORT TO RIGHT CHEST, DRESSING CHANGED. WILL CONTINUE TO MONITOR.
--- NOTE | 2020-03-11 17:08 | NUR ---
SHIFT SUMMARY PT REMAINS INTUBATED AND SEDATED. VENT SETTINGS AC 18/450/5/35%. PROPOFOL INFUSING AT 25 MCG/KG/MIN. LEVOPHED REMAINED AT 6 MCG/MIN ENTIRE SHIFT, VASOPRESSIN 0.04 UNITS/MIN. PROTONIX 10 ML/HR, NS 75 ML/HR. MG REPLACED THIS SHIFT, VANCOMYCIN IVPB GIVEN. PT CONTINUES TO GRIMACE c CARE, FENTANYL PRN GIVEN. INCREASED SECRETIONS THIS AFTERNOON, SMALL AMOUNT OF THICK WHITE. LUNGS DIMINISHED THROUGHOUT. TUBE FEEDINGS STARTED, PIVOT 1.5 AT 10 ML/HR c 30ML q4 HOUR FLUSH. 30ML RESIDUAL THIS AFTERNOON. KUO PATENT, DRAINING TO GRAVITY. CL AND MEDIPORT DRESSINGS CHANGED THIS SHIFT. WILL CONTINUE TO MONITOR UNTIL REPORT TO ONCOMING NURSE.
--- NOTE | 2020-03-11 19:43 | NUR ---
REPORT FROM KANCHAN HERNANDEZ. ASSUMED PT CARE. PT INTUBATED, SETTINGS AC 18/400/5/35%, HILDA WELL. BILATERAL SOFT WRIST RESTRAINTS SECURED. PT HAS PROTONIX DRIP INFUSING, LEVO @ 6MCG/MIN, NS @ 75ML/HR, PROPOFOL @ 25MCG/KG/MIN. DUE TO BP OF 78/40 VASOPRESSIN RESUMED AT 0.04UNITS/MIN. CVP MEASURED AT THIS TIME, 7. QUAD LUMEN CENTRAL LINE TO LEFT IJ SECURE WITH DRESSING C/D/I. MEDIPORT TO RIGHT CHEST WALL NOTED WITH C/D/I DRESSING. PT ATTEMPTS TO MOVE ARMS DURING CARE, GRIMACES SOME. ORAL CARE COMPLETE. TUBE FEEDINGS INF THROUGH OG AT 10ML/HR WITH 30ML Q4 WATER FLUSH. RESIDUAL MEASURED AT 115ML, READMINISTERED RESIDUAL AMOUNT AND RESUMED FEEDS. KUO PATENT AND DRAINING YELLOW URINE. PT TURNED TO RIGHT HIP, PILLOWS PLACED FOR SUPPORT. MEPILEX TO COCCYX INTACT. SCABBING TO LEFT SIDE OF HEAD NOTED. NO OBVIOUS DRAINAGE. SEE FULL SHIFT ASSESSMENT. WILL CONTINUE TO MONITOR AND TURN.
[2020-03-12 04:51] LABS: Base Excess Venous -4.4 mmol/L; Bicarbonate Venous 20.6 mmol/L (24.0-30.0); PCO2 Venous 39.2 mmHg (38-42); PO2 Venous 38.8 mmHg (38-42); pH Blood Venous 7.34 (7.34-7.37)
[2020-03-12 04:58] LABS: BASOPHILS ABSOLUTE AUTO 0.02 K/mm3 (0.00-0.23); BASOPHILS PERCENT AUTO 0 % (0-2); EOSINOPHILS PERCENT AUTO 0 % (0-6); Hematocrit 26.6 % (37.0-53.0); Hemoglobin 8.5 g/dL (13.5-17.5); IMMATURE GRAN ABSOLUTE AUTO 0.21 K/mm3 (0.00-0.10); IMMATURE GRAN PERCENT AUTO 1 % (0-1); LYMPHOCYTES ABSOLUTE AUTO 0.31 K/mm3 (0.84-5.20); LYMPHOCYTES PERCENT AUTO 2 % (21-46); MONOCYTES ABSOLUTE AUTO 0.59 K/mm3 (0.16-1.47); MONOCYTES PERCENT AUTO 3 % (4-13); Mean Corpuscular Volume 88 fL (80-100); Mean Platelet Volume 11.9 fL (9.1-12.4); NEUTROPHILS ABSOLUTE AUTO 17.21 K/mm3 (1.96-9.15); NEUTROPHILS PERCENT AUTO 94 % (41-73); NRBC ABSOLUTE 0.02 K/mm3 (0.00-0.02); NRBC Auto 0.1 /100 WBC (0.0-0.2); Platelet Count 181 K/mm3 (150-400); RDW Coefficient Variation 15.3 % (11.7-14.2); RDW Standard Deviation 46.8 fL (35.1-46.3); Red Blood Cell Count 3.04 M/mm3 (4.30-5.90); White Blood Cell Count 18.34 K/mm3 (4.00-11.30)
[2020-03-12 05:24] LABS: Alanine Aminotransfer (ALT/SGP 355 U/L (12-78); Albumin, Blood 1.7 g/dL (3.4-5.0); Albumin/Globulin Ratio 0.5 (0.8-1.8); Alk Phos 79 U/L (50-136); Anion Gap 10 mmol/L (6-16); Aspartate Aminotrans (AST/SGOT 116 U/L (12-37); Bilirubin, Total 0.4 mg/dL (0.1-1.0); Blood Urea Nitrogen 68 mg/dL (8-24); Bun/Creatinine Ratio 28.3 (12.0-20.0); CO2, Blood 22 mmol/L (21-32); Calcium, Blood 6.9 mg/dL (8.5-10.1); Chloride, Blood 102 mmol/L (98-108); Globulin, Blood 3.2 g/dL (2.2-4.0); Glomerular Filtration Rate 28 (60-); Glucose, Blood 132 mg/dL (70-99); Magnesium, Blood 1.7 mg/dL (1.6-2.4); Phosphorus, Blood 4.6 mg/dL (2.5-4.9); Sodium, Blood 134 mmol/L (136-145); Total Protein, Blood 4.9 g/dL (6.4-8.2); Vancomycin, Random 10.6 ug/mL
[2020-03-12 05:36] LABS: International Normalized Ratio 1.12; Prothrombin Time Results 11.9 Sec (9.7-11.5)
--- NOTE | 2020-03-12 06:23 | NUR ---
SHIFT SUMMARY PT HAD GREAT NIGHT. PT STILL INTUBATED, SPONT RATE 16, 7/5, FI02 35% TOLERATED SEDATION VACATION AND SBT, ON SPONT SINCE 499. ABLE TO TOLERATE BREAK FROM VASOPRESSIN FROM 514 TO 619. RESTARTED DUE TO MAP OF 54. PT OFF PROPOFOL SINCE 444, FOLLOWING COMMANDS, ABLE TO ANSWER YES/ON QUESTIONS WITH NOD. FENTANYL GIVEN FOR PAIN/VENT COMPLIANCE. LEVOPHED INFUSING AT 5MCG/MIN. PT TOLERATING TUBE FEEDS, RESIDUALS NOT GREATER THAN 200ML. DRESSING TO COCCYX CHANGED, MEPILEX DRESSINGS PLACED TO HEELS. CVP THIS SHIFT 7. KUO PATENT AND DRAINING YELLOW URINE WITH 1150 ML TOTAL OUT. MEDIPORT DRESSING REMAINS C/D/I, QUAD LUMEN CENTRAL LINE TO LEFT IJ STILL INTACT, DRESSING C/D. ABD SOFT, NONTENDER, HYPOACTIVE BS. NO STOOL THIS SHIFT. SHINGLES TO SCALP SEEM TO BE IMPROVING. BED BATH COMPLETE, LINENS CHANGED, GREEN LIFT SHEET PLACED UNDER PT. DUE TO MALFUNCTION WITH BED, UNABLE TO WEIGH PT. PENDING ECHO THIS AM. WILL CONTINUE TO MONITOR AND REPORT TO ONCOMING SHIFT.
--- NOTE | 2020-03-12 08:40 | NUR ---
ASSESSMENT- PT WITH EYES CLOSED, OPENS RIGHT EYE TO NAME, NODS HEAD APPROPRIATELY. EXPLAINED PLAN OF CARE. C/O ANXIETY AND PAIN, UNABLE TO STATE WHERE PAIN IS. PROPOFOL RESTARTED AT 15 MCG/KG/MIN, RX GIVEN FOR PAIN WITH IMPROVEMENT. ORALLY INTUBATED, TUBE SECURE. LUNGS CLEAR, SUCTIONED SMALL AMOUNT WHITE SECRETIONS. TOLERATING SPONTANEOUS TRIAL. SINUS RHYTHM, SBP 110'S LEVOPHED AT 5 MCG/MIN DECREASED TO 3 MCG/MIN, VASOPRESSIN GIT INFUSING, NS AT 75 CC/HR, PROTONIX AT 10 CC/HR. RIGHT CHEST MEDIPORT INTACT, LIJ CENTRAL LINE INTACT. TUBE FEEDING VIA OGT AT 10 CC/HR, RARE BOWEL SOUNDS, ABDOMEN SOFT. RESIDUAL 125 CC-REPLACED. UO ADEQUATE VIA KUO. REPOSITIONED, COCCYX AREA DARK PURPLE, MEPILEX INTACT. MEPILEX TO BOTH FEET, NO REDNESS NOTED, HEELS ELEVATED ON PILLOWS. REPOSITIONED TO SIDE TO AVOID ANY PRESSURE ON COCCYX. BILATERAL WRIST RESTRAINTS ON. DRY SCABBED AREA LEFT FOREHEAD TO EYE. AIRBORNE, CONTACT PRECAUTIONS.
--- NOTE | 2020-03-12 12:25 | NUR ---
DR. HEREDIA HERE-UDPATED. SEE ORDERS. PT TOLERATING SPONTANEOUS SETTINGS WTIH ADEQUATE TIDAL VOLUMES. AWAKENS EASILY TO NAME, NODDING HEAD APPROPRIATELY. C/O PAIN-RX GIVEN WITH IMPROVEMENT. BLOOD SUGAR STABLE. VASOPRESSIN OFF. NEEDED TO INCREASE LEVOPHED TO 6 MCG/MIN FOR BP SUPPORT. SEE ORDERS.
--- NOTE | 2020-03-12 12:45 | NUR ---
NS CHANGED TO TKO, IV LASIX GIVEN PER ORDERS. LAB DRAWN TO CHECK H/H LEVEL. MAY POSSIBLY EXTUBATE TODAY.
[2020-03-12 13:13] LABS: Hematocrit 27.7 % (37.0-53.0); Hemoglobin 8.9 g/dL (13.5-17.5)
--- NOTE | 2020-03-12 14:39 | NUR ---
PT EXTUBATED TO NASAL CANNULA. SATURATIONS STABLE. CONGESTED COUGH. GENERALIZED WEAKNESS, ABLE TO LIFT ARMS OFF BED. CONSENT TO TALK WITH BROTHERS AND SIG OTHER JAYSHREE GIVEN. DIURESED 400 CC FROM LASIX. LUNGS COARSE, DIMINISHED BASES AFTER EXTUBATION. RESPIRATIONS UNLABORED
--- NOTE | 2020-03-12 16:00 | NUR ---
PT WITH STABLE VS. USING ORAL SUCTION. LUNGS CLEAR, DIMINISHED THROUGHOUT. MAINTAINING SATURATIONS WITH NASAL CANNULA. NO N/V. ORAL CARE DONE.
--- NOTE | 2020-03-12 16:35 | NUR ---
CONSULT NOTE- UPDATE TO DR. HEREDIA THAT PT UNABLE TO OPEN EYE, TISSUE RED AND SWOLLEN. SCABBED AREA FOREHEAD, EYELIDS. OPHTHAMOLOGY CONSULT-SPOKE WITH DR. TORREZ, DR. HEREDIA SPOKE WITH DR. TORREZ AND PHARMACIST TO CALL TO DISCUSS AVAILABLE ANTIVIRAL EYEDROPS.
--- NOTE | 2020-03-12 18:03 | NUR ---
PT AWAKE, ALERT, SPEECH SOFT BUT UNDERSTANDABLE. DENIES CHEST PAIN OR SOB. C/O NECK DISCOMFORT-IMPROVES WITH REPOSITIONING. DIURESING AFTER EARLIER DOSE LASIX. LEVOPHED DECREASED TO 4 MCG/MIN. NPO. FREQUENT, CONGESTED COUGH. USING ORAL SUCTION. COCCYX DRSG IN PLACE. ISOLATION PRECAUTIONS. SCABS LEFT FOREHEAD, EYE UNCHANGED.
--- NOTE | 2020-03-12 20:05 | NUR ---
ASSUMPTION OF CARE REPORT FROM MOUNA RODRIGUEZ RN AT 1900. ASSUMED PT CARE. PT EXTUBATED TODAY. NO OBVIOUS RESP DISTRESS, VSS. PT HAS NS INFUSING AT TKO, PROTONIX INFUSING AT 10ML/HR. LEVOPHED INF AT 4MCG/MIN, PRESSURES STABLE. TUBE FEEDINGS DC TODAY, BOWEL SOUNDS STILL HYPOACTIVE. PT ALERT AND ORIENTED X3, ABLE TO COMMUNICATE NEEDS. NOT ABLE TO EFFECTIVELY SUCTION HIMSELF, NOT ABLE TO EFFECTIVELY PUSH CALL LIGHT. KUO PATENT AND DRAINING CLEAR YELLOW URINE. PT C/O NECK PAIN AND PAIN TO FACE. SCABBING TO SCALP APPEARS TO HAVE IMPROVED. PT ABLE TO FEEBLY MOVE ALL [address] EXT FLOATED ON PILLOWS. PT ON 3L O2 PER NCC, SATS AT 100%. SECRETIONS THICK AND WHITE IN COLOR. LUNG SOUNDS DIMINISHED BUT CLEAR WITH OBVIOUS UPPER AIRWAY SECRETIONS HEARD. ASSISTED WITH SUCTIONING. PT REPOSITIONED TO LEFT SIDE WITH PILLOWS UNDER HIPS AND BACK. MUSIC PUT ON TV PER PT REQUEST. CALL LIGHT AND REMOTE IN REACH. SEE NURSING ASSESSMENT.
[2020-03-13 04:40] LABS: BASOPHILS ABSOLUTE AUTO 0.02 K/mm3 (0.00-0.23); BASOPHILS PERCENT AUTO 0 % (0-2); EOSINOPHILS PERCENT AUTO 0 % (0-6); Hematocrit 32.1 % (37.0-53.0); Hemoglobin 10.1 g/dL (13.5-17.5); IMMATURE GRAN ABSOLUTE AUTO 0.26 K/mm3 (0.00-0.10); IMMATURE GRAN PERCENT AUTO 1 % (0-1); LYMPHOCYTES ABSOLUTE AUTO 0.23 K/mm3 (0.84-5.20); LYMPHOCYTES PERCENT AUTO 1 % (21-46); MONOCYTES ABSOLUTE AUTO 0.91 K/mm3 (0.16-1.47); MONOCYTES PERCENT AUTO 4 % (4-13); Mean Corpuscular HGB 27.9 pg (26.0-34.0); Mean Corpuscular HGB Conc 31.5 g/dL (31.5-36.5); Mean Corpuscular Volume 89 fL (80-100); Mean Platelet Volume 11.5 fL (9.1-12.4); NEUTROPHILS ABSOLUTE AUTO 21.38 K/mm3 (1.96-9.15); NEUTROPHILS PERCENT AUTO 94 % (41-73); NRBC ABSOLUTE 0.02 K/mm3 (0.00-0.02); NRBC Auto 0.1 /100 WBC (0.0-0.2); Platelet Count 242 K/mm3 (150-400); RDW Coefficient Variation 15.7 % (11.7-14.2); RDW Standard Deviation 48.1 fL (35.1-46.3); Red Blood Cell Count 3.62 M/mm3 (4.30-5.90)
[2020-03-13 04:57] LABS: Bun/Creatinine Ratio 29.5 (12.0-20.0); Calcium, Blood 7.4 mg/dL (8.5-10.1); Creatinine, Blood 2.41 mg/dL (0.60-1.20); Magnesium, Blood 1.7 mg/dL (1.6-2.4); Phosphorus, Blood 4.7 mg/dL (2.5-4.9); Potassium, Blood 3.4 mmol/L (3.5-5.5)
--- NOTE | 2020-03-13 06:25 | NUR ---
SHIFT SUMMARY PT HAD A WONDERFUL SHIFT. TOLERATING O2 AT 2L WITH NO C/O SOB OR CP. SATS REMAINED >95%. PT ALERT AND ORIENTED X3, ABLE TO MAKE NEEDS KNOWN. ARM STRENGTH SEEMS TO BE IMPROVING. ATTEMPTED TO TITRATE LEVOPHED DOWN, UNSUCCESSFUL. LEVOPHED CURRENTLY INFUSING AT 5MCG/MIN, NS AT 10ML/HR AND PROTONIX AT 10ML/HR. MEDIPORT DRESSING CLEAN AND DRY. CENTRAL LINE DRESSING CHANGED THIS AM WITH BLOOD DRAW, CAPS CHANGED. NO FURTHER SKIN ISSUES. SCABBING TO SCALP IMPROVING. NEW GREEN LIFT SHEET PLACED THIS AM AND WEIGHT OBTAINED. WILL CONTINUE TO MONITOR AND REPORT TO ONCOMING RN.
--- NOTE | 2020-03-13 07:30 | NUR ---
ASSUMED CARE OF FROM DAVID BURT. PT A&OX3. ANSWERS QUESTIONS APPRIOPRIATELY. DIFFICULTY TO UNDERSTAND DUE TO GARBLED SPEECH. ABLE TO MAKE NEEDS KNOWN. FOLLOWS COMMANDS. LS CLEAR ON THE RIGHT SIDE, DIMINISHED LLL. 2LPM O2 NC. O2 SATS DIFFICULT TO OBTAIN BUT >95%. MANAGING SECRETIONS W/O DIFFICULTY. NON-PRODUCTIVE COUGH. P/W/D. ABD SOFT, BOWEL SOUNDS HYPOACTIVE. PT NPO PENDING SPEECH EVAL. KUO CATHETER DRAINING CLEAR, YELLOW URINE. LEFT SIDE OF HEAD WITH MULTIPLE SCABS, NO DRAINAGE NOTED. LEFT EYE CRUSTED AND SWOLLEN SHUT. CLEANED AND DROPS ADMINISTERED. DIFFICULT TO ASSESS PUPILARY RESPONSE DUE TO SWELLING. 1+ EDEMA ON THE LEFT FOOT. 2+ ON THE RIGHT FOOT, COOL, DUSKY, FAINT PALPABLE PULSE CONFIRMED WITH DOPPLER. MD AWARE. LE ELEVATED ON PILLOWS. CENTRAL LINE DRESSING C/D/I. INFUSING LEVOPHED AT 5MCG/MIN VIA MEDIPORT, DRESSING C/D/I, WILL TITRATE FOR MAP >65. WILL CONTINUE TO MONITOR.
[2020-03-13 08:59] LABS: Vancomycin, Trough 4.5 ug/mL (5.0-10.0)
--- NOTE | 2020-03-13 17:21 | NUR ---
SHIFT SUMMARY PT A&OX3, INTERACTING WITH STAFF MORE THAN BEGINNING OF SHIFT. UP TO CHAIR FOR MOST OF SHIFT, TOLERATED WELL. ON ROOM AIR WITH O2 SATS >93%. LUNGS CONTINUED TO BE DIMINISHED ON LEFT SIDE. PT WITH NON-PRODUCTIVE, STRONGER COUGH. SPEECH PERFORMED SWALLOW EVAL, FAILED, REMAINS NPO, PENDING REPEAT EVAL IN AM. LEVOPHED DRIP CONTINUES, ATTEMPTED TO TITRATE DOWN, MAP'S <65. TITRATED FOR MAP'S >65. DIURESED TODAY. K REPLACED. VANCO AND ACYCLOVIR DC'D. PT TO REMAIN IN ISOLATION PER INFECTION CONTROL. PT/OT EVAL TODAY. KUO REMAINS IN PLACE, PATENT AND DRAINING TO GRAVITY. WILL CONTINUE TO MONITOR
--- NOTE | 2020-03-13 18:28 | NUR ---
Initial spiritual care note: Mr. Peter is in advanced isolation precautions. I was tasked to provide him with an Advanced Directive. Asked RN to take information packet to pt. Advised I would be available should he have questions/concerns.
--- NOTE | 2020-03-13 19:30 | NUR ---
1930: PATIENT STATES THAT WOUND TO COCCYX HAS "BEEN THERE A LONG TIME." STATES HIS DOCTOR SAID WOUND WAS "FROM NOT MOVING AROUND MUCH AND SITTING A LOT."
--- NOTE | 2020-03-13 19:30 | NUR ---
ASSUMED CARE OF PATIENT. PATIENT SITTING IN CHAIR; C/O PAIN TO HIS LOWER BACK AND LEFT EYE. ASSESSMENT DONE. PATIENT STATES HE WOULD LIKE TO GO BACK TO BED IN ONE HOUR. CALL LIGHT IN REACH. 2044: PATIENT PRE-MEDICATED WITH FENTANYL 25MCG IV PRIOR TO MOVING. PATIENT LIFTED BACK TO BED USING CEILING LIFT WITH OTHER SPATIAL SCIENTIST ASSISTANCE. PATIENT REPOSITIONED IN BED ON LEFT SIDE. MAP <65; LEVOPHED INCREASED. KUO CARE DONE AND BRUSHED PATIENT'S TEETH. SIDERAILS UP FOR SAFETY; CALL MALHOTRA IN REACH.
[2020-03-14 04:50] LABS: Magnesium, Blood 1.6 mg/dL (1.6-2.4); Phosphorus, Blood 5.1 mg/dL (2.5-4.9)
--- NOTE | 2020-03-14 06:36 | NUR ---
SHIFT SUMMARY: PATIENT AWAKE MOST OF THE NIGHT. C/O INTERMITTENT PAIN TO LOWER BACK AND LEFT EYE; MEDICATED WITH FENTANYL 3 TIMES WITH GOOD RELIEF. MAP <65; NEEDED TO TITRATE UP LEVOPHED DRIP TO 10MCG/HR; STARTED VASOPRESSIN DRIP PER ORDER. BREATH SOUNDS DIMINISHED IN BILATERAL BASES; SATS 86% ON ROOM AIR; STARTED OXYGEN AT 2L/MIN VIA NASAL CANNULA. KUO CATH PATENT DRAINING ADEQUATE AMOUNTS CLEAR, YELLOW URINE. AWAITING ST BEDSIDE SWALLOW EVALUATION THIS AM. CONTINUE CURRENT POC.
--- NOTE | 2020-03-14 07:30 | NUR ---
ASSUMED CARE OF PATIENT FROM [place] RN. PT A&OX3. ANSWERS QUESTIONS APPROPRIATELY. DIFFICULT TO UNDERSTAND DUE TO GARBLED SPEECH. ABLE TO COMMUNICATE NEEDS. FOLLOWS COMMANDS. LS CLEAR ON THE RIGHT SIDE. LS LEFT SIDE DIMINISHED. 1.5LPM O2 VIA NC. SATS >95%. MANAGING SECRETIONS W/O DIFFICULTY. PRODUCTIVE COUGH W SCANT YELLOW SECRETIONS. SKIN P/W/D. ABD SOFT. PT NPO PENDING AFTERNOON SPEECH/ SWALLOW EVAL. KUO CATHETER DRAINING CLEAR, YELLOW URINE. MULTIPLE SCABS ON LEFT SIDE OF HEAD, NO DRAINAGE. LEFT EYELID CRUSTED AND SWOLLEN, PT NOT ABLE TO OPEN. UNABLE TO ASSESS PUPILARY RESPONSE DUE TO SWELLING. INFUSING LEVOPHED AT 7MCG/MIN VIA MEDIPORT AND VASOPRESSIN AT 7MCG/MIN. WILL TITRATE FOR MAP>65. WILL CONTINUE TO MONITOR.
[2020-03-14 10:08] LABS: BASOPHILS ABSOLUTE AUTO 0.03 K/mm3 (0.00-0.23); BASOPHILS PERCENT AUTO 0 % (0-2); EOSINOPHILS PERCENT AUTO 0 % (0-6); Hematocrit 34.9 % (37.0-53.0); Hemoglobin 11.1 g/dL (13.5-17.5); IMMATURE GRAN ABSOLUTE AUTO 0.22 K/mm3 (0.00-0.10); IMMATURE GRAN PERCENT AUTO 1 % (0-1); LYMPHOCYTES ABSOLUTE AUTO 0.27 K/mm3 (0.84-5.20); LYMPHOCYTES PERCENT AUTO 1 % (21-46); MONOCYTES PERCENT AUTO 6 % (4-13); Mean Corpuscular HGB 28.2 pg (26.0-34.0); Mean Corpuscular HGB Conc 31.8 g/dL (31.5-36.5); Mean Corpuscular Volume 89 fL (80-100); Mean Platelet Volume 11.3 fL (9.1-12.4); NEUTROPHILS ABSOLUTE AUTO 18.29 K/mm3 (1.96-9.15); NEUTROPHILS PERCENT AUTO 92 % (41-73); NRBC ABSOLUTE 0.07 K/mm3 (0.00-0.02); NRBC Auto 0.4 /100 WBC (0.0-0.2); Platelet Count 265 K/mm3 (150-400); RDW Coefficient Variation 16.2 % (11.7-14.2); RDW Standard Deviation 48.7 fL (35.1-46.3); Red Blood Cell Count 3.93 M/mm3 (4.30-5.90); White Blood Cell Count 19.91 K/mm3 (4.00-11.30)
[2020-03-14 10:28] LABS: Albumin, Blood 2.1 g/dL (3.4-5.0); Albumin/Globulin Ratio 0.6 (0.8-1.8); Bilirubin, Total 0.5 mg/dL (0.1-1.0); Bun/Creatinine Ratio 30.6 (12.0-20.0); Calcium, Blood 7.8 mg/dL (8.5-10.1); Creatinine, Blood 2.42 mg/dL (0.60-1.20); Globulin, Blood 3.6 g/dL (2.2-4.0); Potassium, Blood 3.7 mmol/L (3.5-5.5); Total Protein, Blood 5.7 g/dL (6.4-8.2)
--- NOTE | 2020-03-14 17:53 | NUR ---
SHIFT SUMMARY PT A&OX3, INTERACTING WITH STAFF AND DAUGHTER PAUL. ON 1.5LPM O2 NC WITH O2 SATS>95%. LUNGS CONTINUED TO BE DIMINISHED ON THE LEFT SIDE. INTERMITTENT COUGH WITH CLEAR SPUTUM. ESOPHOGRAM PERFORMED, PT REMAINS NPO DUE TO ASPIRATION RISK. EARLIER DR. HEREDIA DISCUSSED DOBHOFF PLACEMENT WITH PT AND DAUGHTER. AGREEABLE TO PLACEMENT. WILL DISCUSS FURTHER IN AM. LEVOPHED INFUSING @3MCG/MIN AT THIS TIME. ABLE TO TITRATE DOWN AND PLACE VASO ON STANDBY THIS SHIFT. 1L LR GIVEN. PT NOT DIURESED TODAY. PT/OT CONTINUED TODAY, STRENGTH IMPROVED. ABLE TO ASSIST WITH AND HELP ROLL. PAIN IMPROVED THIS SHIFT, 2/10 MAJORITY OF THE SHIFT. MEPILEX DRESSING ON COCCYX CHANGED. AREA CONTINUES TO BE PURPLE WITH RED, OPEN BLISTER IN CENTER. TURNS Q2 THIS SHIFT. INFECTION CONTROL UPDATED ON PT, ISOLATION CHANGED TO CONTACT DUE TO CLOSED LESIONS. ANTIVIRAL EYEDROPS ARRIVED FROM PHARMACY, ADMINISTERED THIS SHIFT. KUO CATHETER DRAINING TO GRAVITY. WILL CONTINUE TO MONITOR UNTIL REPORT TO ONCOMING RN.
--- NOTE | 2020-03-14 18:37 | NUR ---
called to meet with daughter who has arrived from out of state. We reviewed filling out an advsnce directive and care planning. pt had diagnostic swallow eval. pt very fatigued need to review prognositication with home support worker and help daughter with advance directive.
--- NOTE | 2020-03-14 20:00 | NUR ---
ASSESSMENT/ASSUMED CARE PT RESTING QUIETLY, WATCHING TV. PT REPORTS PAIN 5-10,"EVERYWHERE". MED WITH FENTANYL 25 MCQ PER EMAR. LUNGS CLEAR ON 1.5 LITER O2 VIA NC. DENIES SOB AT THIS TIME. PRODUCTIVE COUGH AT TIMES WITH WHITE SPUTUM. HEART RATE REGULAR. BP STABLE WITH LEVOPHED AT 3 MCQ/MIN VIA MEDIPORT. MEDIPORT DRSG INTACT, SITE CLEAR. CENTRAL LINE TO LEFT IJ DRSG INTACT AND SITE CLEAR. NS AT TKO VIA CENTRAL LINE. BT+ ABD FLAT AND SOFT. DENIES N/V. KUO CATH PATENT DRAINING YELLOW URINE. REPOSITIONED PT TO RIGHT. COCCYX DRSG INTACT. WILL BE TURNING SIDE TO SIDE TO KEEP OFF COCCYX. SCD'S ON. PT MOVING EXT BUT WEAK. ASSISTED WITH ORAL CARE AND GAGANDEEP CARE.
--- NOTE | 2020-03-15 00:33 | NUR ---
REASSESSMENT PT RESTING QUIETLY. AWAKENS EASILY TO VERBAL STIMULI. C/O PAIN 5/10 TO LEFT SIDE OF FACE AND HEAD MED WITH FENTANYL 50 MCQ WITH GOOD RESULTS. BLOOD GLUCOSE 96, NO INSULIN GIVEN. REPOSITIONED AND ORAL CARE DONE.
[2020-03-15 04:10] LABS: Hematocrit 31.6 % (37.0-53.0); Hemoglobin 9.8 g/dL (13.5-17.5); Mean Corpuscular HGB 27.8 pg (26.0-34.0); Mean Corpuscular Volume 90 fL (80-100); Mean Platelet Volume 11.3 fL (9.1-12.4); NRBC ABSOLUTE 0.02 K/mm3 (0.00-0.02); NRBC Auto 0.2 /100 WBC (0.0-0.2); Platelet Count 198 K/mm3 (150-400); RDW Coefficient Variation 16.4 % (11.7-14.2); RDW Standard Deviation 49.4 fL (35.1-46.3); Red Blood Cell Count 3.52 M/mm3 (4.30-5.90); White Blood Cell Count 12.76 K/mm3 (4.00-11.30)
[2020-03-15 04:29] LABS: Albumin/Globulin Ratio 0.6 (0.8-1.8); Bilirubin, Total 0.4 mg/dL (0.1-1.0); Calcium, Blood 7.7 mg/dL (8.5-10.1); Creatinine, Blood 2.21 mg/dL (0.60-1.20); Globulin, Blood 3.1 g/dL (2.2-4.0); Potassium, Blood 3.2 mmol/L (3.5-5.5); Total Protein, Blood 5.1 g/dL (6.4-8.2)
--- NOTE | 2020-03-15 05:50 | NUR ---
SHIFT SUMMARY PT RESTING QUIETLY. PT MED WITH FENTANYL DURING THE NIGHT FOR PAIN TO FACE AND HEAD. TITRATED LEVOPHED UP TO 5 MCQ/MIN THAN BACK DOWN TO 3 MCQ/MIN. POTASSIUM 3.2, 40 MEQ KCL IVP ORDERED AND STARTED. PT TURNED SIDE TO SIDE DURING THE NIGHT TO KEEP OFF COCCYX. BLOOD GLUCOSE STABLE, NO INSULIN GIVEN. REPORT TO ON COMING NURSE
--- NOTE | 2020-03-15 08:45 | NUR ---
ASSESSMENT- PT AWAKE, ALERT, ABLE TO TALK BUT SPEECH SOFT AND GARBLED AT TIMES. ORIENTED, FOLLOWS DIRECTIONS. C/O PAIN BACK OF NECK, REPOSITIONED WITH SOME IMPROVEMENT. NSR, VSS. LEVOPHED TITRATED OFF. NS INFUSING VIA MEDIPORT.POTASSIUM REPLACEMENT INFUSING. LIJ CENTRAL LINE DDI. DENIES SOB, LUNGS WITH CRACKLES LEFT BASE. HAS FAILED SWALLOW STUDY. ORAL CARE DONE. CRUSTED LESIONS LEFT FOREHEAD TO EYE. KEEPS LEFT EYE TIGHTLY CLOSED, PUPIL LARGER ON LEFT. NO N/V. UO VIA KUO. SKIN FRAGILE.ABLE TO USE CALL LIGHT
--- NOTE | 2020-03-15 10:23 | NUR ---
BATH DONE, PT C/O NECK PAIN-RX GIVEN AND REPOSITIONED WITH RELIEF. STATES HUNGRY. NPO FOR SWALLOW STUDY FAILURE. VSS. OFF LEVOPHED. WATCHING TV, KNOWLEDGEABLE REGARDING CURRENT EVENTS.
--- NOTE | 2020-03-15 13:24 | NUR ---
DR. LOUIS AT BEDSIDE, DISCUSSED PLANS WITH PT AND PT'S DAUGHTER MARYBETH. PALLIATIVE CARE RN ZOILA HERE. FEEDING TUBE PLACED RIGHT NARE WITHOUT DIFFICULTY. LUNG SOUNDS UNCHANGED. AWAITING XRAY. RX FOR C/O TAILBONE BONE AND REPOSITIONED WITH IMPROVEMENT
--- NOTE | 2020-03-15 14:25 | NUR ---
DOBHOFF REPORTED TO BE AT ESOPHO-GASTRO JUNCTION. ADVANCED 5 CM TO 60 CM. PT TOLERATED WELL. SAT AT EDGE OF BED WITH THERAPISTS, VERY WEAK. REPOSITIONED
--- NOTE | 2020-03-15 17:26 | NUR ---
DOBHOFF POSITION REVIEWED WITH DR. LOUIS-SECOND XRAY DONE-POSITION VERIFIED. TUBE FEEDING JEVITY 1.2 STARTED. REVIEWED S/S ABDOMINAL DISTRESS WITH PT. PT TALKATIVE, VISITING WITH DAUGHTER AT BEDSIDE. VSS. NSR. SBP 90'S. UO ADEQUATE. HAVE TURNED SIDE TO SIDE TODAY TO KEEP PRESSURE OFF COCCYX, EXPLAINED NEED OF REPOSITIONING. DOES NOT TOLERATE LEFT SIDE WELL, STATES UNCOMFORTABLE FOR HIM. CHANGED TO DNR. CONTINUE TO MONITOR
--- NOTE | 2020-03-15 19:18 | NUR ---
discussion with pt and daughter on potential plans of care. polst completed and processed. original sent with daughter.
--- NOTE | 2020-03-15 20:00 | NUR ---
ASSUMED CARE: PT IS A&O. MAIN C/O HAS BEEN PAIN ON LEFT SIDE OF HEAD. PT HAS A SHINGLES OUTBREAK THAT IS SCABBED OVER. IN SR. HR IN THE 90S. SBP 100-110S. PT ON 1.5L NC. CLEAR AND DIM IN BASES. SPO2 >90%. PT IS NPO D/T FAILING SWALLOW STUDY. DOBHOFF IN PLACE WITH TF AT 25MLS/HR-GOAL IS 60MLS/HR. CHEMBGS Q 6. 4 LUMEN [address] IN LIJ. MEDIPORT WITH NS TKO INFUSING. COCCYX IS PURPLE AND HAS THE BEGINNINGS OF BREAKDOWN-MEPILEX C/D/I. KOU IN PLACE DRAINING TO GRAVITY. WILL CONTINUE TO MONITOR
[2020-03-16 01:01] LABS: PCO2 Arterial 50.4 mmHg (35-45); PO2 Arterial 121 mmHg (80-100); pH Blood Arterial 7.33 (7.35-7.45)
[2020-03-16 03:28] LABS: BASOPHILS ABSOLUTE AUTO 0.01 K/mm3 (0.00-0.23); BASOPHILS PERCENT AUTO 0 % (0-2); EOSINOPHILS PERCENT AUTO 0 % (0-6); Hematocrit 31.4 % (37.0-53.0); Hemoglobin 9.9 g/dL (13.5-17.5); IMMATURE GRAN ABSOLUTE AUTO 0.11 K/mm3 (0.00-0.10); IMMATURE GRAN PERCENT AUTO 1 % (0-1); LYMPHOCYTES ABSOLUTE AUTO 0.22 K/mm3 (0.84-5.20); LYMPHOCYTES PERCENT AUTO 2 % (21-46); MONOCYTES ABSOLUTE AUTO 0.63 K/mm3 (0.16-1.47); MONOCYTES PERCENT AUTO 5 % (4-13); Mean Corpuscular HGB Conc 31.5 g/dL (31.5-36.5); Mean Corpuscular Volume 89 fL (80-100); Mean Platelet Volume 10.9 fL (9.1-12.4); NEUTROPHILS ABSOLUTE AUTO 11.68 K/mm3 (1.96-9.15); NEUTROPHILS PERCENT AUTO 92 % (41-73); NRBC ABSOLUTE 0.04 K/mm3 (0.00-0.02); NRBC Auto 0.3 /100 WBC (0.0-0.2); Platelet Count 203 K/mm3 (150-400); RDW Coefficient Variation 16.3 % (11.7-14.2); Red Blood Cell Count 3.54 M/mm3 (4.30-5.90); White Blood Cell Count 12.65 K/mm3 (4.00-11.30)
[2020-03-16 04:22] LABS: Bun/Creatinine Ratio 42.8 (12.0-20.0); Calcium, Blood 7.8 mg/dL (8.5-10.1); Creatinine, Blood 1.87 mg/dL (0.60-1.20); Magnesium, Blood 1.7 mg/dL (1.6-2.4); Potassium, Blood 3.3 mmol/L (3.5-5.5)
--- NOTE | 2020-03-16 06:25 | NUR ---
SHIFT SUMMARY: NO ACUTE CHANGES T/O SHIFT. PT REMAINS A&O. FENTANYL GIVEN X 2 FOR L HEAD PAIN. IN SR WITH PVCS. SBP AND HR STABLE. SPO2 MORE STABLE AT END OF SHIFT. NO BM OVER NIGHT. NS AT TKO INFUSING THROUGH MEDIPORT. NO INSULIN COVERAGE NECESSARY.. WILL PASS REPORT TO ONCOMING SHIFT
--- NOTE | 2020-03-16 07:15 | NUR ---
AM NOTE... ASSUMED CARE OF PT APROX 0700, PT IS A&Ox3 WITH MOMENTS OF CONFUSTION. PT'S VS CURRENTLY STABLE. PT HAS BEEN PICKING AT SHINGLES SCABS ON HIS FACE AND FOREHEAD, DRESSING PLACED OVER SCABS TO PREVENT PICKING BUT PT HAS PULLED THE DRESSING OFF MULTIPLE TIMES. PT L/S CLEAR T/O ON NC AT 2-4L PRN AND WHILE SLEPEING. BT PRESENT AND HYPOACTIVE ABD IS SOFT AND NONTENDER TO PALP. TUBE FEED WAS STARTED AND WILL BE INCREASED PER PROTOCOL TO GOAL OF 60MLS/HR W/30MLS WATER FLUSH Q4HR. KUO IS PATENT AND DRAINING CLEAR DARK YELLOW URINE TO GRAVITY. CALL LIGHT IN REACH WILL CONTINUE TO MONITOR.
--- NOTE | 2020-03-16 18:46 | NUR ---
SHIFT SUMMARY... NO ACUTE NEGATIVE CHANGES NOTED THIS SHIFT. PT'S VS HAVE REMAINED STABLE OFF OF THE LEVOPHED. PT HAS BEEN PICKING AT THE SCABS ON HIS FOREHEAD AND EYE AREA, A DRESSING WAS PLACED TO HELP STOP THE PICKING BUT THE PT REMOVED THE DRESSING TO CONTINUE TO STRATCH THE AREA. PT HAS BEEN MEDICATED SEVERAL TIMES FOR COCCYX/BUTTOCKS PAIN PER EMAR, MEPILEX IN PLACE C/D/I. DOBHOFF TUBE FEED IS RUNNING PER ORDERS AND IS AT THE GOAL RATE OF 60MLS/HR. PT'S FAMILY AT THE BEDSIDE FOR SEVERAL HOURS TODAY, THEY WERE UPDATED ON THE PLAN OF CARE AND CURRENT CONDITION. CALL LIGHT IN REACH WILL CONTINUE TO MONITOR UNTIL REPORT IS GIVEN TO ONCOMING RN.
--- NOTE | 2020-03-16 22:28 | NUR ---
ASSUMING CARE OF PATIENT- 1900 ASSUMING CARE OF PATIENT. PATIENT RESTING IN BED AND ANSWERING QUESTIONS APPROPRIATELY. SOME INTERMITTENT CONFUSION/SHORT TERM MEMORY PROBLEMS AT TIMES. HE HAS SCABS ON HIS FOREHEAD AND HIS EYE IS SWOLLEN SHUT (R/T SHINGLES). HE MOVES ALL EXTREMITIES EQUALLY AND HAS GENERALIZED WEAKNESS. HE IS ON 2 L NC. HE HAS A DOBHOFF TUBE PRESENT WITH JEVITY RUNNING AT 60 MLS/HR. PATIENT DENYING PAIN CURRENTLY. KUO PATENT AND DRAINING. CALL LIGHT WITHIN REACH. REMINDED PATIENT TO CALL WITH ANY NEEDS.
--- NOTE | 2020-03-17 03:27 | NUR ---
PATIENT TRANSFERRED FROM ICU. ALERT AND ORIENTED, BUT PATIENT IS NEEDING FREQUENT EDUCATION ON VISITOR REQUIREMENTS HE CONTINUALY ASKS IF HIS IS COMING BY TO SEE HIM WELL HOW MANY VISITORS ARE ALLOWED TO VISIT. HE COMES WITH A DTI TO HIS COCYX, MEPILEX IS APPLIED. TUBE FEEDS INFUSING PER PROVIDER ORDER. CALL LIGHT WITHIN REACH, WILL CONTINUE TO MONITOR UNTIL END OF SHIFT.
[2020-03-17 04:00] LABS: BASOPHILS ABSOLUTE AUTO 0.02 K/mm3 (0.00-0.23); BASOPHILS PERCENT AUTO 0 % (0-2); EOSINOPHILS ABSOLUTE AUTO 0.02 K/mm3 (0.00-0.68); EOSINOPHILS PERCENT AUTO 0 % (0-6); Hematocrit 33.7 % (37.0-53.0); Hemoglobin 10.3 g/dL (13.5-17.5); IMMATURE GRAN ABSOLUTE AUTO 0.17 K/mm3 (0.00-0.10); IMMATURE GRAN PERCENT AUTO 1 % (0-1); LYMPHOCYTES ABSOLUTE AUTO 0.24 K/mm3 (0.84-5.20); LYMPHOCYTES PERCENT AUTO 2 % (21-46); MONOCYTES ABSOLUTE AUTO 0.88 K/mm3 (0.16-1.47); MONOCYTES PERCENT AUTO 6 % (4-13); Mean Corpuscular HGB 28.1 pg (26.0-34.0); Mean Corpuscular HGB Conc 30.6 g/dL (31.5-36.5); Mean Corpuscular Volume 92 fL (80-100); Mean Platelet Volume 11.4 fL (9.1-12.4); NEUTROPHILS ABSOLUTE AUTO 12.35 K/mm3 (1.96-9.15); NEUTROPHILS PERCENT AUTO 90 % (41-73); NRBC ABSOLUTE 0.05 K/mm3 (0.00-0.02); NRBC Auto 0.4 /100 WBC (0.0-0.2); Platelet Count 206 K/mm3 (150-400); RDW Coefficient Variation 16.7 % (11.7-14.2); RDW Standard Deviation 51.6 fL (35.1-46.3); Red Blood Cell Count 3.66 M/mm3 (4.30-5.90); White Blood Cell Count 13.68 K/mm3 (4.00-11.30)
[2020-03-17 04:30] LABS: Magnesium, Blood 1.7 mg/dL (1.6-2.4)
[2020-03-17 04:32] LABS: Bun/Creatinine Ratio 46.9 (12.0-20.0); Calcium, Blood 7.9 mg/dL (8.5-10.1); Creatinine, Blood 1.62 mg/dL (0.60-1.20); Phosphorus, Blood 2.7 mg/dL (2.5-4.9); Potassium, Blood 3.7 mmol/L (3.5-5.5)
--- NOTE | 2020-03-17 15:22 | NUR ---
PT REMAINED ALERT AND ORIENTED, CONFUSED AT TIMES, GARBLED SPEECH. VITALS HAS BEEN STABLE, AFEBRILE. DOBHOFF IN PLACE TUBE FEED RUNNING @60MLS/HR 30 MLS FLUSH Q4 HRS. PT C/O OF BACK PAIN, PAIN MEDS GIVEN X2, REPOSITIONED Q2HRS. MEDIPORT SALINE LOCKED. PT WORKED WITH OT TODAY PT GETTING STRONGER EACH DAY PER REPORT. FRIEND AND DAUGHTER AT BEDSIDE. CATHETER DC'D, 1100 RASHARD YELLOW URINE OUTPUT. NO OTHER ACUTE ISSUES REPORTED. RESTING IN BED MOST OF THE SHIFT, CONVERSIVE WITH FAMILY AND STAFF. WILL MONITOR
[2020-03-18 04:40] LABS: Hematocrit 33.4 % (37.0-53.0); Hemoglobin 10.3 g/dL (13.5-17.5); Mean Corpuscular HGB 28.2 pg (26.0-34.0); Mean Corpuscular HGB Conc 30.8 g/dL (31.5-36.5); Mean Corpuscular Volume 92 fL (80-100); Mean Platelet Volume 11.1 fL (9.1-12.4); NRBC ABSOLUTE 0.05 K/mm3 (0.00-0.02); NRBC Auto 0.4 /100 WBC (0.0-0.2); Platelet Count 198 K/mm3 (150-400); RDW Coefficient Variation 16.4 % (11.7-14.2); RDW Standard Deviation 50.4 fL (35.1-46.3); Red Blood Cell Count 3.65 M/mm3 (4.30-5.90)
[2020-03-18 05:07] LABS: Albumin, Blood 1.9 g/dL (3.4-5.0); Albumin/Globulin Ratio 0.6 (0.8-1.8); Bilirubin, Total 0.3 mg/dL (0.1-1.0); Bun/Creatinine Ratio 56.5 (12.0-20.0); Calcium, Blood 8.2 mg/dL (8.5-10.1); Creatinine, Blood 1.31 mg/dL (0.60-1.20); Globulin, Blood 3.2 g/dL (2.2-4.0); Potassium, Blood 3.6 mmol/L (3.5-5.5); Total Protein, Blood 5.1 g/dL (6.4-8.2)
--- NOTE | 2020-03-18 07:25 | NUR ---
no cute events overnight and now significant clinical changes overnight. Patient was not able to void after pulling out of the leroy during dayshift yesterday, so we had to straight cath patient and he had 500 mL of urine output. Flomax was started to help him void.
--- NOTE | 2020-03-18 09:43 | NUR ---
ASSUME CARE; PT ALERT, VITALS REMAIN STABLE. JEVITY 1.2 RUNNING AT 60MLS/HR VIA NGTUBE, PT TOLERATING WELL. PT WAS ABLE TO VOID 300 MLS THIS MORNING VIA URINAL, CALLS APPROPRIATELY. PT REPOSITIONED IN BED Q2HRS, COCCYX DRESSING REPLACED. DR PINEDA WAS IN TO SEE PT, OKAY TO COVER SHINGLES ON FOREHEAD SO PT WONT SCRATCH IT. ORAL CARE PROVIDED, BARIUM SWALLOW EVAL SCHEDULED AT NOON TODAY. WILL MONITOR
--- NOTE | 2020-03-18 15:12 | NUR ---
Saw pt this morning and spoke with his daughter. She was asking about a plan. Review with her that must look at his ability to swallow and tolerance of feeding and ability to rehab. Supportive cnversatio with daughter she has to head back home for a few days. He and her father have been having some deep conversations about his life and needs. Sheis wondering if he would want a peg tube. Review with daughter his genral health and labs and that he might not tolerate or benefit from a peg tube. She feels he would not. Called by speech therapist with review of swallow eval and no improvement in ability. Will review with phsycian for reccomendations on how to discuss option and prognosis with patient. will Review labs and BMI with diversified crops supervisor and formulate a reccomendation. Pt KPS score is 30%. Pt is at risk for sudden event. discussed possible hospice care with daughter.
--- NOTE | 2020-03-18 18:49 | NUR ---
PT SUMMARY: SEE PREVIOUS NOTES: PT REMAINED ALERT AND CONVERSIVE. VITALS HAS BEEN STABLE, AFEBRILE. PT FAILED 2ND BARIUM SWALLOW EVAL AGAIN TODAY. PT ASPIRATED ON THE PROCEDURE CAME BACK TO THE ROOM AND WAS FEELING SHORT OF BREATH SATS REMAINED ABOVE 90% ON 3L OF O2. PALLIATIVE CARE DISCUSSED THE PLAN WITH DAUGHTER TODAY. PT CONTINUES ON NG TUBE FEEDING AT 60MLS/HR 30 MLS FLUSH Q4HRS. MEDIPORT FLUSHING WELL, DRESSING INTACT. REDRESSED DRESSING ON COCCYX STAGE 2 PRESSURE ULCER, PT REPOSITIONED Q2HRS. PT VOIDING WELL USES URINAL HAD DECENT AMOUNT OF UTINE OUTPUT FOR THE SHIFT. CALLS APPROPRIATELY, WILL REPORT TO ONCOMING SHIFT
--- NOTE | 2020-03-18 21:59 | NUR ---
ASSUMED CARE OF PT, REPORT RCV'D FROM DAVID ESPINOZA. PT ALERT AND ORIENTED, SPEECH GARBLED BUT UNDERSTANDABLE. PT ABLE TO WEAKLY ASSIST WITH CARE AND ABLE TO USE CALL LIGHT APPROPRIATELY MOST OF THE TIME. MEPILEX TO COCCYX C/D/I, CHANGED DURING DAYSHIFT, Q2 TURNS. PT SATS>90% ON 3L NC, OCCASIONAL WEAK UNPRODUCTIVE COUGH. JEVITY 1.2 INFUSING AT GOAL RATE OF 60 ML/HR WITH Q4 30 ML FLUSH THROUGH DOBHOFF. PT USES URINAL INDEPENDENTLY. PT DENIES PAIN AT THIS TIME. SEE FULL SHIFT ASSESSMENT.
--- NOTE | 2020-03-18 23:14 | NUR ---
ASSESSED COCCYX WOUND AND CHANGED/DATED DRESSING. WOUND NON-BLANCHABLE, OPEN. MEPILEX REAPPLIED. PT COMPLAINS OF BACK PAIN. ABLE TO WEAKLY ASSIST WITH TURNING, BED CHANGE.
[2020-03-19 04:16] LABS: BASOPHILS ABSOLUTE AUTO 0.04 K/mm3 (0.00-0.23); BASOPHILS PERCENT AUTO 0 % (0-2); EOSINOPHILS ABSOLUTE AUTO 0.12 K/mm3 (0.00-0.68); EOSINOPHILS PERCENT AUTO 1 % (0-6); Hematocrit 36.2 % (37.0-53.0); Hemoglobin 10.9 g/dL (13.5-17.5); IMMATURE GRAN ABSOLUTE AUTO 0.29 K/mm3 (0.00-0.10); IMMATURE GRAN PERCENT AUTO 2 % (0-1); LYMPHOCYTES ABSOLUTE AUTO 0.32 K/mm3 (0.84-5.20); LYMPHOCYTES PERCENT AUTO 2 % (21-46); MONOCYTES ABSOLUTE AUTO 0.96 K/mm3 (0.16-1.47); MONOCYTES PERCENT AUTO 7 % (4-13); Mean Corpuscular HGB 28.1 pg (26.0-34.0); Mean Corpuscular HGB Conc 30.1 g/dL (31.5-36.5); Mean Corpuscular Volume 93 fL (80-100); NEUTROPHILS ABSOLUTE AUTO 11.67 K/mm3 (1.96-9.15); NEUTROPHILS PERCENT AUTO 87 % (41-73); NRBC ABSOLUTE 0.04 K/mm3 (0.00-0.02); NRBC Auto 0.3 /100 WBC (0.0-0.2); RDW Coefficient Variation 17.3 % (11.7-14.2); RDW Standard Deviation 51.4 fL (35.1-46.3); Red Blood Cell Count 3.88 M/mm3 (4.30-5.90)
[2020-03-19 04:41] LABS: Albumin, Blood 2.1 g/dL (3.4-5.0); Anion Gap 4 mmol/L (6-16); Blood Urea Nitrogen 67 mg/dL (8-24); Bun/Creatinine Ratio 52.8 (12.0-20.0); CO2, Blood 33 mmol/L (21-32); Calcium, Blood 8.3 mg/dL (8.5-10.1); Chloride, Blood 117 mmol/L (98-108); Creatinine, Blood 1.27 mg/dL (0.60-1.20); Glomerular Filtration Rate 58 (60-); Glucose, Blood 122 mg/dL (70-99); Phosphorus, Blood 1.7 mg/dL (2.5-4.9); Potassium, Blood 3.7 mmol/L (3.5-5.5); Sodium, Blood 154 mmol/L (136-145)
[2020-03-19 05:10] LABS: Mean Platelet Volume 12.2 fL (9.1-12.4); Platelet Count 174 K/mm3 (150-400)
--- NOTE | 2020-03-19 05:35 | NUR ---
SHIFT SUMMARY PT STABLE OVERNIGHT. PT COOPERATIVE WITH CARE AND MOSTLY ABLE TO EXPRESS NEEDS. OCCASIONALLY CONFUSED (I.E. CHEWING ON DOBHOFF) BUT REDIRECTABLE. PT REQUESTING TO BE "TAKEN OUT OF THE HOSPITAL IN A [place]" HE KNOWS HE IS TOO WEAK TO STAND BUT WANTS TO GO HOME. PT ABLE TO HOLD URINAL AND VOID. WEAKLY ASSISTS WITH REPOSITIONING. TREATED FOR BACK PAIN AND PAIN RELATED TO SHINGLES ON HEAD. CHANGED MEPILEX DRESSING ON COCCYX, SKIN OPEN-NOT BLANCHABLE. VSS T/O SHIFT. WILL REPORT TO DAYSHIFT NURSE.
--- NOTE | 2020-03-19 18:48 | NUR ---
SHIFT SUMMARY PT A&Ox3; FORGETFUL AT TIMES. PT SPEECH GARBLED, HARD TO UNDERSTAND. PT CONTINUES TO BE STRICT NPO; Q4 ORAL CARE COMPLETE. DOBHOFF IN PLACE WITH CONTINUOUS TUBE FEEDING AT 60ML/HR AND 130ML/HR FLUSH Q4. PT SOB AT REST; TACHYPNIC RESP RATE 20-24; LABORED; SPO2 >90% ON 4L O2 VIA NC. BLE MOTTLED AND PT COLD TO TOUCH; NOTIFIED DR PINEDA REGARDING RESP STATUS AND MOTTLING/COLD; DR PINEDA TO PLACE ORDERS. PT SR/ST FOR MAJORITY OF SHIFT PER TELE, 22 BEAT RUN OF SVT; NOTIFIED DR PINEDA AND DR AGUAYO. PT DENIES PAIN; NAUSEA, DIZZINESS AND CHEST PAIN. VSS. NO OTHER ACUTE CHANGES NOTED DURING SHIFT. REPORT GIVEN TO ONCOMING RN.
--- NOTE | 2020-03-20 05:33 | NUR ---
SHIFT SUMMARY: PATIENT PULLED DOBHOFF AT APPROX 0430 AND REFUSED ANOTHER STATING IT WAS CHOKING HIM. VSS, CALL LIGHT WITHN REACH, BED LOW AND LOCKED WITH ECIT ALARM ON.
[2020-03-20 10:49] LABS: BASOPHILS ABSOLUTE AUTO 0.03 K/mm3 (0.00-0.23); BASOPHILS PERCENT AUTO 0 % (0-2); EOSINOPHILS ABSOLUTE AUTO 0.13 K/mm3 (0.00-0.68); EOSINOPHILS PERCENT AUTO 1 % (0-6); Hematocrit 36.3 % (37.0-53.0); Hemoglobin 11.1 g/dL (13.5-17.5); IMMATURE GRAN ABSOLUTE AUTO 0.19 K/mm3 (0.00-0.10); IMMATURE GRAN PERCENT AUTO 1 % (0-1); LYMPHOCYTES PERCENT AUTO 2 % (21-46); MONOCYTES ABSOLUTE AUTO 0.97 K/mm3 (0.16-1.47); MONOCYTES PERCENT AUTO 6 % (4-13); Mean Corpuscular HGB 28.7 pg (26.0-34.0); Mean Corpuscular HGB Conc 30.6 g/dL (31.5-36.5); Mean Corpuscular Volume 94 fL (80-100); Mean Platelet Volume 12.2 fL (9.1-12.4); NEUTROPHILS ABSOLUTE AUTO 13.62 K/mm3 (1.96-9.15); NEUTROPHILS PERCENT AUTO 89 % (41-73); NRBC ABSOLUTE 0.02 K/mm3 (0.00-0.02); NRBC Auto 0.1 /100 WBC (0.0-0.2); Platelet Count 189 K/mm3 (150-400); RDW Coefficient Variation 18.3 % (11.7-14.2); RDW Standard Deviation 50.8 fL (35.1-46.3); Red Blood Cell Count 3.87 M/mm3 (4.30-5.90); White Blood Cell Count 15.24 K/mm3 (4.00-11.30)
[2020-03-20 11:18] LABS: Alanine Aminotransfer (ALT/SGP 60 U/L (12-78); Albumin, Blood 2.1 g/dL (3.4-5.0); Albumin/Globulin Ratio 0.6 (0.8-1.8); Alk Phos 71 U/L (50-136); Anion Gap 3 mmol/L (6-16); Aspartate Aminotrans (AST/SGOT 34 U/L (12-37); Bilirubin, Total 0.7 mg/dL (0.1-1.0); Blood Urea Nitrogen 64 mg/dL (8-24); Bun/Creatinine Ratio 56.6 (12.0-20.0); CO2, Blood 36 mmol/L (21-32); Calcium, Blood 8.5 mg/dL (8.5-10.1); Chloride, Blood 116 mmol/L (98-108); Creatinine, Blood 1.13 mg/dL (0.60-1.20); Globulin, Blood 3.6 g/dL (2.2-4.0); Glomerular Filtration Rate >60 (60-); Glucose, Blood 102 mg/dL (70-99); Potassium, Blood 4.2 mmol/L (3.5-5.5); Sodium, Blood 155 mmol/L (136-145); Total Protein, Blood 5.7 g/dL (6.4-8.2)
--- NOTE | 2020-03-20 17:08 | NUR ---
pt now on comfort care discussion with family of need pt progressing.
--- NOTE | 2020-03-20 18:14 | NUR ---
ASSUMED CARE OF PATIENT AT 1735 UPON HIS ARRIVAL FROM PCU. A&O X 3, NELSY MARTÍNEZ. C/O SEVERE GENERALIZED PAIN; MEDICATED PER EMAR. ON O2 @ 5 L/MIN NC, APPEARS TO HAVE SOME AIR HUNGER, IS USING ACCESORY MUSCLES. BLE ARE COLD AND MOTTLED. PATIENT REPOSITIONED FOR HIS COMFORT, FLOATED BUTTOCKS ON PILLOWS TO OFF LOAD PRESSURE, GAVE CALL LIGHT.
--- NOTE | 2020-03-20 18:18 | NUR ---
TRANSFER NOTE PT A&Ox2; CONFUSED AT TIMES AND FORGETFUL. PT RESTING IN BED, REPOSITIONED FOR COMFORT. INCREASED RESP EFFORT, LABORED BREATHING AT TIMES, INCREASE O2 TO 5L O2 VIA NC, THEN 5L O2 VIA OXIMIZER THIS EVENING. AIR HUNGER NOTED; MEDICATED THIS AFTERNOON PER ORDERS. MODERATE AMOUND OF THICK SPUTUM. SWELLING TO LEFT EYE AND SCAB TO BROWN AND HEAD R/T SHINGLES; MEDICATED EYE PER ORDERS. OTHER VSS. PT TRANSITIONED TO COMFORT CARE THIS AFTERNOON; DR AGUAYO AT BEDSIDE THIS AFTERNOON DISCUSSED WITH PATIENT. TELEPHONE REPORT GIVEN TO RN ASSUMING CARE OF PT; PT TRANSFERED TO ROOM 308 AT APPROX 1730.
--- NOTE | 2020-03-21 00:50 | NUR ---
PT COMFORT CARE STATUS. A/OX3 AT START OF SHIFT. HAS PROGRESSIVELY DEMONSTRATED INCREASED CONFUSION AND AGITATION THE EVENING PROGRESSED. ATIVAN GIVEN X1. PT VERY CONFUSED AND ALMOST INCOHERENT AFTER ATIVAN ADMINISTERED. WILL HOLD OFF ON GIVING ANY MORE AT THIS TIME. MORPHINE GIVEN TO HELP MANAGE PAIN, AGITATION- EFFECTIVE FOR ABOUT 45 MINUTES EACH TIME. PT HAS REMOVED HIS 02 AND REFUSED TO ALLOW IT TO BE REAPPLIED SINCE ABOUT 2200. HUMIDIFIER ATTACHED TO 02 W/ THE SUSPICION PT'S NOSE IS DRY, BUT THIS HAS NOT HELPED PT TO KEEP IT ON. PT TRIES TO GET OOB INDEPENDENTLY- DANGLES LEGS OFF BED STATING, "I NEED TO STAND UP". REPOSTIONED PT, ELEVATED HOB. CURRENTLY RESTING QUIETLY W/ OXIMIZER CANNULA IN MOUTH.
--- NOTE | 2020-03-21 02:14 | NUR ---
INCREASED RESTLESSNESS WHEN ATTENDS ARE WET. ASSISTED TO GET CLEANED UP AND DRIED. PT APPEARS MORE RELAXED. STATES HE HAS PAIN BUT SAYS "NO" TO PAIN MED OFFER AT THIS TIME. WILL CONT TO MONITOR.
--- NOTE | 2020-03-21 05:18 | NUR ---
SHIFT SUMMARY: COMFORT CARE STATUS. PT IS CURRENTLY RESPONSIVE TO VOICE. SAYING "YES" OR "NO". REMOVING 02. SAYS HE IS IN PAIN, BUT DOES NOT WANT PAIN MEDS. REMOVES BLANKETS. FAN IS ON. PT'S SKIN FEELS COOL. MOTTLING ON BLE FROM FEET TO KNEES. RESPS REGULAR. SHALLOW. PT APPEARS COMFORTABLE. POSITIONED W/ HOB ELEVATED. BED ALARM ON. WILL CONT TO MONITOR.
--- NOTE | 2020-03-21 09:03 | NUR ---
Pt resting in bed with his eyes closed upon arrival. Pt opens his eys with gentle touch and verbal stimuli. Pt attempts to speak and struggles with communication. Pt lauren pain at this time. Pt appears comfortable with no S/S of distress at this time. Pt's friend is at bedside. Friend reports no concerns at this time. Pt appears to have transitioned and has entered into the actively dying stage. Spoke with Bedside DAVID Gannon and discussed case. Received call from Pt's daughter Silvia prior to visiting with Pt. Silvia is back home. Silvia reports having completed POA with Pt and his bank is requesting either to speak with Pt or a letter from MD reporting Pt is incapacitated. Spoke with Dr Draper, discussed case, and daughters request for document of his examination on whether Pt is incapacitated. Will provide copy of document to daughter once completed by MD. Palliative Care will remain available.
--- NOTE | 2020-03-21 16:59 | NUR ---
SHIFT SUMMARY/COMFORT CARE PATIENT MEDICATED X2 FOR PAIN THIS SHIFT. PATIENT WEARING OXYMIZER AT 5L FOR COMFORT. PATIENT'S SPEECH SLURRED AND DIFFICULT TO UNDERSTAND AT TIMES. PATIENT DROWSY. CALL TO DAUGHTER MARYBETH AND SIGNIFICANT OTHER JAYSHREE THIS MORNING TO INFORM OF CHANGE IN PATIENT LEVEL OF CONSCIOUSNESS. JAYSHREE AT BEDSIDE MOST OF DAY. CALL LIGHT IN REACH.
--- NOTE | 2020-03-21 17:10 | NUR ---
Spiritual care note: I met with pt's SO, Kalyn, at bedside. She appears to have accepted POC and says she's at peace. She is soft-spoken and calm. They have been together for 4 years. Both have adult children [id number]. Kalyn feels well-supported by her residential community. We prayed together for a peaceful transition. Kalyn was tearful, but responded well to gentle anticipatory bereavement investment counselor and spiritual direction. Mr. Peter was non-responsive, breaths uneven. He appears near end-of-life. [facility] Operator/Navigator Services will remain available.
--- NOTE | 2020-03-22 04:43 | NUR ---
SHIFT SUMMARY ASSUMED CARE OF PT AT 1900. PT IS ABLE TO COMMUNICATE NEEDS WITH ONE WORD SENTENCES AND SHAKING HIS HEAD. PT L EYE WILL NOT OPEN AND PT R EYE IS QUIÑONEZ. RESIPRATIONS WERE EVEN AT THE BEGINNING OF THE SHIFT BUT TOWARDS THE END THEY STARTED TO BECOME GASPING. PT HAS TAKEN OF OXYGEN MULTIPLE TIMES. ORAL CARE PERFORMED, PT REPOSITIONED Q4 PER REQUEST. PT DID NOT VOID THIS SHIFT. PT HAS SHOOK HEAD NO WHEN ASKED IF HE WANTS PAIN MEDICATION T/O THE SHIFT. PT SHOWED NO SIGN OF DISCOMFORT T/O THE SHIFT. CALL LIGHT IN REACH, BED IN LOWEST POSTION, WILL CONTINUE TO MONITOR UNTIL DAYSHIFT NURSE ARRIVES.
--- NOTE | 2020-03-22 12:01 | NUR ---
Comfort Care Visit Received call from Bedside RN Jagdeep reports Pt has transitioned and is imminent. Arrived to Pt's room. Pt is non responsive, repirations 8/min, shallow, with long periods of apnea. Some secretions noted. Pt does not appear to be in distress and appears to be having a peaceful passing. Called and spoke with Pt's daughter Silvia. Offered emotional support and therapeutic listening. Discussed arrangements with family choosing [facility]. Silvia expresses appreciation of call and reports no other concerns at this time. Palliative Care will remain available.
--- NOTE | 2020-03-22 13:10 | NUR ---
PATIENT PATIENT AT 12:08 WITH SIGNIFICANT OTHER JAYSHREE AT BEDSIDE. PATIENT'S DAUGHTER AND BROTHER INFORMED. POST MORTEM CARE COMPLETED. CHARGE NURSE COMPLETING FINAL DISCHARGE INTERVENTION.
== END 2020-03-22 12:28 | DRG 871 ==
LOC: ER 08:28 → ICUW 13:27 → PCU 03-16 21:37 → MEDS 03-20 17:43 → ENPENDDIS 03-22 12:26 → MEDS 03-22 12:28
PROVIDERS: Family Medicine; Internal Medicine; Internal Medicine Critical Care Medicine; Internal Medicine Pulmonary Disease; Nurse Practitioner Acute Care; Pharmacist; Physician Assistant; ADMIT Internal Medicine
PROC: 02HV33Z Insertion of Infusion Device into Superior Vena Cava, Percutaneous Approach (ICD-10-PCS; principal; 2020-03-09)
PROC: B548ZZA Ultrasonography of Superior Vena Cava, Guidance (ICD-10-PCS; 2020-03-09)
PROC: 5A1945Z Respiratory Ventilation, 24-96 Consecutive Hours (ICD-10-PCS; 2020-03-09)
PROC: 0W993ZX Drainage of Right Pleural Cavity, Percutaneous Approach, Diagnostic (ICD-10-PCS; 2020-03-09)
PROC: 3E043XZ Introduction of Vasopressor into Central Vein, Percutaneous Approach (ICD-10-PCS; 2020-03-10)
PROC: 0BH18EZ Insertion of Endotracheal Airway into Trachea, Via Natural or Artificial Opening Endoscopic (ICD-10-PCS; 2020-03-10)
DX: A41.01 Sepsis due to Methicillin susceptible Staphylococcus aureus (principal); I50.23 Acute on chronic systolic (congestive) heart failure; K72.00 Acute and subacute hepatic failure without coma; J96.21 Acute and chronic respiratory failure with hypoxia; J96.22 Acute and chronic respiratory failure with hypercapnia; N17.0 Acute kidney failure with tubular necrosis; J15.211 Pneumonia due to Methicillin susceptible Staphylococcus aureus; I21.4 Non-ST elevation (NSTEMI) myocardial infarction; C45.0 Mesothelioma of pleura; B02.30 Zoster ocular disease, unspecified; E87.2 Acidosis; R64 Cachexia; Z20.828 Contact with and (suspected) exposure to other viral communicable diseases; R65.20 Severe sepsis without septic shock; Z51.5 Encounter for palliative care; Z79.82 Long term (current) use of aspirin; K21.9 Gastro-esophageal reflux disease without esophagitis; Z95.1 Presence of aortocoronary bypass graft; Z87.891 Personal history of nicotine dependence; I25.10 Atherosclerotic heart disease of native coronary artery without angina pectoris; Z68.22 Body mass index [BMI] 22.0-22.9, adult; E83.42 Hypomagnesemia; Z92.0 Personal history of contraception; E87.6 Hypokalemia; L89.131 Pressure ulcer of right lower back, stage 1; I25.5 Ischemic cardiomyopathy; R57.0 Cardiogenic shock
CPT/HCPCS: 31500; 31720; 32554; 32555; 36415; 36556; 36600; 51702; 71045; 74176; 74220; 74230; 80048; 80053; 80069; 80202; 81001; 82330; 82530; 82550; 82803; 82945; 82947; 83605; 83615; 83690; 83735; 83880; 84100; 84132; 84145; 84157; 84484; 85014; 85018; 85025; 85027; 85610; 86850; 86900; 86901; 87040; 87070; 87075; 87077; 87147; 87186; 87205; 88108; 88305; 89051; 92526; 92610; 92611; 93005; 93010; 93306; 94002; 94003; 94760; 96365; 96366; 96367; 96368; 96375; 97110; 97163; 97166; 97530; 99285-25; A9270-GY; C1751; C9113; J0133; J0171; J0456; J0696; J1200; J1642; J1650; J1720; J1815; J1940; J2060; J2354; J2405; J2704; J3010; J3370; J3475; J3480; J7030; J7040; J7050; J7060; U0002